=== PATIENT | male | born 1975 | race Caucasian/White ===

== ENCOUNTER 2024-08-08 14:35 | Emergency (ER) | payer OTHER, SELFPAY ==
[2024-08-08 14:41] VITALS: BP 136/89; PULSE 88; RESP 18; TEMP 36.9; O2SAT 97; BMI 36.3
--- NOTE | 2024-08-08 16:01 | CRLHL7_ITS ---
For Patients: As a result of the Cures Act, medical imaging exams and procedure reports are released immediately into your electronic medical record. You may view this report before your referring provider. If you have questions, please contact your health care provider. INDICATION: Fall. TECHNIQUE: Lumbar spine 2 view. COMPARISON: None. FINDINGS: Bones: Straightening of the lumbar spine. No fractures or significant bone lesions. Joints: There are 6 non rib-bearing vertebral bodies. The 1st 1 will be denoted as L1. With this numbering scheme, worst disc and joint space disease is moderate at the L5-L6 level.. Mild degenerative changes elsewhere. Soft tissues: Unremarkable. Dictated by Valerie Mosqueda MD @ 08/08/2024 4:32:04 PM (Electronically Signed)
--- NOTE | 2024-08-08 16:01 | ED.GENADULT ---
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 He slipped on ice today landed on his left side. Has pain in his left hip left elbow although these have improved significantly and he complains of low back pain. He has had known degenerative disc disease at L3 through S1. He has had chronic pain in his low back and he is concerned that something might have ?broken?. He is stiff but he is able to move has limited flexion extension secondary to discomfort. Does not really describe any significant significant radicular symptoms. No bowel or bladder changes fever chills perineal numbness. Related Data Home Medications ?Medication ?Instructions ?Recorded ?Confirmed amlodipine 10 mg tablet (Norvasc) 10 mg PO DAILY 08/08/24 08/08/24 losartan 50 mg tablet 50 mg PO DAILY 08/08/24 08/08/24 Allergies Allergy/AdvReac Type Severity Reaction Status Date / Time prednisone Allergy Verified 08/08/24 14:39 Review of Systems Status of ROS: Reports: 6 or more systems reviewed and unremarkable except as noted in History and below PFSH [facility] Social History Smoking Status: Former smoker Do you use any of these nicotine containing products: None Second hand tobacco smoke exposure: No How often do you have a drink containing alcohol: 2-4 times a month How many standard drinks containing alcohol do you have on a typical day: 1 or 2 How often do you have six or more drinks on one occasion: Never AUDIT-C Alcohol total score: 2 Non-prescribed substance use: denies use service: Yes Exam Narrative: Exam Narrative: Objective: Vital signs are within normal limits Alert orient x3 no distress With movement he has pain in his low back, he is able to roll over, I am able to flex extend his hips fully and internal external rotation was hips causes no trouble, lower extremities show no abnormality or tenderness . HEENT neck are unremarkable is moving fully he is alert, he has no tenderness to his left elbow and has full range of motion As mention able to flex extend his hips fully without difficulty. Const: Vital Signs, click to edit/add: Vital Signs - 24 hr 08/08/24 14:41 Temperature 98.4 F Pulse Rate [Pulse Oximeter] 88 Respiratory Rate 18 Blood Pressure [Ri ght Upper Arm] 136/89 Pulse Oximetry 97 Oxygen Delivery Me thod Room Air Course Vital Signs Vital signs: Initial Vital Signs Temperature 98.4 F 08/08/24 14:41 Temperature Source Temporal Artery Scan 08/08/24 14:41 Pulse Rate 88 08/08/24 14:41 Pulse Rhythm Regular 08/08/24 14:41 Respiratory Rate 18 08/08/24 14:41 Blood Pressure 136/89 08/08/24 14:41 Blood Pressure Mean 104 08/08/24 14:41 Blood Pressure Position Sitting 08/08/24 14:41 Pulse Oximetry 97 08/08/24 14:41 Oxygen Delivery Method Room Air 08/08/24 14:41 Vital Signs Temperature 98.4 F 08/08/24 14:41 Pulse Rate 88 08/08/24 14:41 Respiratory Rate 18 08/08/24 14:41 Blood Pressure 136/89 08/08/24 14:41 Pulse Oximetry 97 08/08/24 14:41 Oxygen Delivery Method Room Air 08/08/24 14:41 Temperature 98.4 F 08/08/24 14:41 Pulse Rate 88 08/08/24 14:41 Respiratory Rate 18 08/08/24 14:41 Blood Pressure 136/89 08/08/24 14:41 Pulse Oximetry 97 08/08/24 14:41 Oxygen Delivery Method Room Air 08/08/24 14:41 Medical Decision Making MDM Narrative Medical decision making narrative: Patient is a 49-year-old white male with known lumbar degenerative disc disease, I think at this point given his fall and where the predominance of his discomfort is low back will get an x-ray of his lumbar spine. If this is showing no compression fractures other abnormality of significance, perhaps some anti-inflammatory medication as well as tramadol for a day or 2 would be reasonable. He is off work today. Please see addendum Addendum 4:23 p.m. patient has x-ray that shows lumbar degenerative disc disease by my read. No fractures noted. Will give him Toradol and tramadol small amounts. Not to use these while he is driving. Follow up with regular doctor in his home, ice the back and aggressive basis, light activity the back. Discharge Plan Discharge Clinical Impression: Fall, Low back pain, Lumbar spondylosis Patient Disposition: Home, Self-Care Condition: Stable Additional Instructions: Patient should rest his back light activity, icing on her aggressive basis, will give him a prescription for Toradol and tramadol to use. Not to use these when he is driving. Follow-up with his regular doctor when he gets home. Activity Level: Light activity Discharge Diet: Regular Prescriptions: No Action amlodipine [Norvasc] 10 mg tablet 10 mg PO DAILY losartan 50 mg tablet 50 mg PO DAILY Stand Alone Forms: [email or web address] Info Instructions
--- OUTSIDE RECORDS SUMMARY | 2024-08-08 16:08 | XMS_ITS ---
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 Date/Time Encounter Type Encounter Description Reason Provider Source Dec 22, 2023 09:30 AM VITAL SIGNS RECORDED PRIMARY CARE/MEDICINE ICD-10-CM I10 Essential (primary) hypertension BLANCA HERRERA Michelle Encounter Template Text not used by [place] Assessments - Encounter Diagnoses This section includes the primary and secondary diagnoses documented for the Encounter. Date/Time Primary/Secondary Diagnosis Diagnosis Name Provider Source Dec 22, 2023 10:41 AM PRIMARY Essential (primary) hypertension TIKA HERRERA [facility] Plan of Treatment: Future Appointments (+ 6 months) and Future Tests (+/- 45 days) The Plan of Treatment section includes future care activities for the patient from all [place] [facility]. This section includes future appointments and future orders which are active, pending or scheduled. Future Appointments This section includes appointments that were scheduled to occur 6 months from the date of the Encounter, up to a maximum of 20 appointments. The data comes from all [place] treatment facilities. Appointment Date/Time Appointment Type Appointme nt Facility Name Jan 16, 2024 09:30 AM AMBULATORY - NONE [facility] Jan 17, 2024 04:00 PM AMBULATORY - NONE [facility] Mar 12, 2024 08:00 AM AMBULATORY - NONE [facility] Apr 09, 2024 01:00 PM AMBULATORY - NONE [facility] Jun 19, 2024 11:00 AM AMBULATORY - MEDICINE [facility] [place] Jun 20, 2024 10:15 AM AMBULATORY - NONE [facility] Social History: Smoking Status (Most current) and Tobacco Use (All prior to encounter date) This section includes the most current, and the historical, smoking and tobacco- related health factors from the [place] facility where the Encounter took place. Current Smoking Status This section includes the most current smoking, or tobacco-related health factor, from the [place] facility where the Encounter took place. Date/Time Current Smoking Status Comment Facil ity Dec 22, 2023 09:30 AM VA-TOBACCO FORMER USER [facility] Tobacco Use History This section includes a history of the smoking, or tobacco-related health factors, that were collected on or before the date of the Encounter. The data comes from the [place] facility where the Encounter took place. Date/Time Smoking Status/Tobacco Use Comment F acility Dec 22, 2023 09:30 AM VA-TOBACCO QUIT 5 TO < 15 YRS [facility] Jun 28, 2022 10:00 AM VA-TOBACCO FORMER USER [facility] Jun 28, 2022 10:00 AM VA-TOBACCO QUIT 1 TO < 5 YRS [facility] Sep 15, 2020 10:00 AM VA-TOBACCO DOESNT USE WI 30 MIN WAKEUP [facility] Sep 15, 2020 10:00 AM VA-TOBACCO USE 30 YEARS OR MORE [facility] Sep 15, 2020 10:00 AM VA-TOBACCO USE ADVICE [facility] Sep 15, 2020 10:00 AM VA-TOBACCO USE NETWORK SECURITY CONSULTANT NO [facility] Sep 15, 2020 10:00 AM VA-TOBACCO USE MED NOTIFY PROVIDER [facility] Sep 15, 2020 10:00 AM VA-TOBACCO USER EVERY DAY [facility] Jul 12, 2019 01:45 PM VA-TOBACCO DOESNT USE WI 30 MIN WAKEUP [facility] Jul 12, 2019 01:45 PM VA-TOBACCO USE 30 YEARS OR MORE [facility] Jul 12, 2019 01:45 PM VA-TOBACCO USE ADVICE [facility] Jul 12, 2019 01:45 PM VA-TOBACCO USE NETWORK SECURITY CONSULTANT YES wants to quit [facility] Jul 12, 2019 01:45 PM VA-TOBACCO USE MED NOTIFY PROVIDER wants to quit [facility] Jul 12, 2019 01:45 PM VA-TOBACCO USER EVERY DAY [facility] Feb 25, 2017 12:01 PM V7-HX TOBACCO USER >12 MONTHS <7 YEARS [facility] Encounter Notes: All associated encounter notes This section contains the clinical notes associated to the Encounter. Date/Time Encounter Note(s) Provider Source Dec 22, 2023 01:04 PM ADDENDUM: LOCAL TITLE: Addendum STANDARD TITLE: ADDENDUM DATE OF NOTE: DEC 22, 2023@13:04:51 ENTRY DATE: DEC 22, 2023@13:04:51 AUTHOR: TIAGO SHIPMAN EXP COSIGNER: URGENCY: STATUS: COMPLETED Echo ordered. 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 This question can be asked in several different ways. Choose the way that fits the patient/visit best. What REALLY matters to you in your life? What do you want your health for? What are some things that bring you amy? This question was addressed at this visit? No Scheduled Visit: PC PACT Nursing Progress Note RN VISIT: VITAL SIGNS: BLOOD PRESSURE:163/122 (12/22/2023 10:09) PULSE:79 (12/22/2023 10:09) TEMPERATURE:98.2 F [36.8 C] (12/22/2023 10:09) RESPIRATION:18 (12/22/2023 10:09) WEIGHT(LBS):228.2 lb [103.51 kg] (12/22/2023 10:09) HEIGHT(INCHES):70 in [177.8 cm] (12/22/2023 10:09) BMI: BODY MASS INDEX DEC 22, 2023@10:09:58 32.8 SEP 05, 2023@09:29:02 32.8 JAN 27, 2023@13:43:26 33.0 PAIN: 0 (12/22/2023 10:09) 96% (12/22/2023 10:09) ALLERGY: MEDROL, SERTRALINE Is there anything that makes it hard for you to take care of your health? No Do you need any medication refills or renewal today? 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 advised to f/u with PCP regarding BP Objective: initial BP 163/122 mitchel recheck 144/120. Denies any acute symptoms Assessment: General Presentation: Oriented to person, place, time, and , Situation Triage levels 5 tier: Level 5: Lower Risk/Non-Urgent Plan: Return to clinic in 2 weeks for BP check with log, amlodipine added, bp monitor ordered, PCP to order stress test for further evaluation as recommended by physician. 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 Buxton reports that BP at the time was 150s/100s. Buxton denies any acute symptoms at this time, but states that he has experienced intermittent CP and SOB (emphysema he states). Nurse advised when CP,vision disturbances, SOB,dizziness arises to report to ER for further evaluation at that time. voiced understanding. EKG ordered and completed. Normal EKG-Sinus rhythm. reports last LDCT stated the following:Moderate coronary artery calcifications and has not been further evaluated. PCP advised of the above. Amlodipine ordered.SS written with voucher. PCP advised that stress test would be ordered as well for further evaluation.CC process explained. RTC placed for BP check with log. BP monitor ordered through ROES. [place] voiced understanding. No other concerns at this time. CLINICAL REMINDER ACTIVITY/PLAN OF CARE COVID-19 Immunization: Refused Moderna Monovalent COVID-19 vaccine Immunization: COVID-19 (MODERNA), MRNA, LNP-S, PF, 50 MCG/0.5 ML (AGES 12+ YEARS) Refusal Reason: PATIENT DECISION Patient refuses all immunization(s) in the COVID-19 group Date Documented: 12/22/23 10:22 Hepatitis C Testing: HCV testing deferred for 4 months. Reason: declined Tdap Immunization: The patient declines to receive the recommended dose of Tdap vaccine. Immunization: TDAP Refusal Reason: PATIENT DECISION Patient refuses all immunization(s) in the TDAP group Date Documented: 12/22/23 10:23 Tobacco Use Screening: The patient is a former tobacco user. The patient quit five to less than fifteen years ago. Hepatitis B Serology/Immunization: Hepatitis B vaccine given previously - written records available Hepatitis B vaccine - standard 3 dose series (Energix, Recombivax, etc) Documented: HEP B, ADULT Historical Date Administered: Dec 03, 2001 Series: Series 1 Outside Location: [facility] Information Source: FROM PUBLIC AGENCY Documented: HEP B, ADULT Historical Date Administered: Jun 10, 2004 Series: Series 2 Outside Location: [facility] Information Source: FROM PUBLIC AGENCY Documented: HEP B, ADULT Historical Date Administered: Oct 02, 2006 Series: Series 3 Outside Location: [facility] Information Source: FROM PUBLIC AGENCY Alcohol Use Screen (AUDIT-C): Alcohol Screen: SCREEN FOR ALCOHOL (AUDIT-C) An alcohol screening test (AUDIT-C) was negative (score=3). 1. How often did you have a drink containing alcohol in the past year? Consider a drink to be a 12 ounce can or bottle of regular beer, 8 ounces of malt liquor, a 5 ounce glass of table wine, or a 1.5 ounce shot of liquor (like scotch, gin, or vodka). Two to four times a month 2. How many drinks containing alcohol did you have on a typical day when you were drinking in the past year? One or two drinks 3. How often did you have six or more drinks on one occasion in the past year? Less than monthly HTN Assess for Elevated BP>=140/90: Repeat blood pressure: 144/120 The patient's medication regimen was adjusted to improve blood pressure control. Comment: Amlodipine ordered.stress test to be ordered per PCP /shwetha/ CYNTHIA BAGLEY RN REGISTERED NURSE Signed: 12/22/2023 10:41 Receipt Acknowledged By: 12/22/2023 12:56 /shwetha/ TIAGO PEREZ NP [facility] Dec 22, 2023 09:58 AM PHARMACY NOTE: LOCAL TITLE: NON VA MEDS PRESCRIPTIONS STANDARD TITLE: PHARMACY NOTE DATE OF NOTE: DEC 22, 2023@09:58 ENTRY DATE: DEC 22, 2023@09:58:43 AUTHOR: TIAGO SHIPMAN EXP COSIGNER: URGENCY: STATUS: COMPLETED NON VA MED PRESCRIPTIONS ------- [place] [address] [id number] Date: DEC 22, [address] [place], [place] [id number] Patient : Jun Allergies on File: MEDROL, SERTRALINE 1. AMLODIPINE TAB 5MG TAKE ONE TABLET BY MOUTH EVERY DAY X 14 days -Disp 14 -No refill ____ Prescriber's Signature TIAGO SHIPMAN CRISELDA#: [id number] NOTE: C-II MEDICATIONS REQUIRE A SEPARATE PRESCRIPTION ====== RAMONITATIAGO Trupti [facility] Dec 22, 2023 09:05 AM PACT NOTE: LOCAL TITLE: PC PACT NURSING PROGRESS NOTE STANDARD TITLE: PACT NOTE DATE OF NOTE: DEC 22, 2023@09:05 ENTRY DATE: DEC 22, 2023@10:18:23 AUTHOR: CYNTHIA HERRERA EXP COSIGNER: URGENCY: STATUS: COMPLETED PC PACT NURSING PROGRESS NOTE Has ADDENDA WHOLE HEALTH MISSION, ASPIRATION, PURPOSE QUESTION Please address what matters most to the [place] as part of your patient centered health care visit. This question can be asked in several different ways. Choose the way that fits the patient/visit best. What REALLY matters to you in your life? What do you want your health for? What are some things that bring you amy? This question was addressed at this visit? No Scheduled Visit: PC PACT Nursing Progress Note RN VISIT: VITAL SIGNS: BLOOD PRESSURE:163/122 (12/22/2023 10:09) PULSE:79 (12/22/2023 10:09) TEMPERATURE:98.2 F [36.8 C] (12/22/2023 10:09) RESPIRATION:18 (12/22/2023 10:09) WEIGHT(LBS):228.2 lb [103.51 kg] (12/22/2023 10:09) HEIGHT(INCHES):70 in [177.8 cm] (12/22/2023 10:09) BMI: BODY MASS INDEX DEC 22, 2023@10:09:58 32.8 SEP 05, 2023@09:29:02 32.8 JAN 27, 2023@13:43:26 33.0 PAIN: 0 (12/22/2023 10:09) 96% (12/22/2023 10:09) ALLERGY: MEDROL, SERTRALINE Is there anything that makes it hard for you to take care of your health? No Do you need any medication refills or renewal today? 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 advised to f/u with PCP regarding BP Objective: initial BP 163/122 mitchel recheck 144/120. Denies any acute symptoms Assessment: General Presentation: Oriented to person, place, time, and , Situation Triage levels 5 tier: Level 5: Lower Risk/Non-Urgent Plan: Return to clinic in 2 weeks for BP check with log, amlodipine added, bp monitor ordered, PCP to order stress test for further evaluation as recommended by physician. 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 Buxton reports that BP at the time was 150s/100s. Buxton denies any acute symptoms at this time, but states that he has experienced intermittent CP and SOB (emphysema he states). Nurse advised when CP,vision disturbances, SOB,dizziness arises to report to ER for further evaluation at that time. Buxton voiced understanding. EKG ordered and completed. Normal EKG-Sinus rhythm. reports last LDCT stated the following:Moderate coronary artery calcifications and has not been further evaluated. PCP advised of the above. Amlodipine ordered.SS written with voucher. PCP advised that stress test would be ordered as well for further evaluation.CC process explained. RTC placed for BP check with log. BP monitor ordered through ROES. [place] voiced understanding. No other concerns at this time. CLINICAL REMINDER ACTIVITY/PLAN OF CARE COVID-19 Immunization: Refused Moderna Monovalent COVID-19 vaccine Immunization: COVID-19 (MODERNA), MRNA, LNP-S, PF, 50 MCG/0.5 ML (AGES 12+ YEARS) Refusal Reason: PATIENT DECISION Patient refuses all immunization(s) in the COVID-19 group Date Documented: 12/22/23 10:22 Hepatitis C Testing: HCV testing deferred for 4 months. Reason: declined Tdap Immunization: The patient declines to receive the recommended dose of Tdap vaccine. Immunization: TDAP Refusal Reason: PATIENT DECISION Patient refuses all immunization(s) in the TDAP group Date Documented: 12/22/23 10:23 Tobacco Use Screening: The patient is a former tobacco user. The patient quit five to less than fifteen years ago. Hepatitis B Serology/Immunization: Hepatitis B vaccine given previously - written records available Hepatitis B vaccine - standard 3 dose series (Energix, Recombivax, etc) Documented: HEP B, ADULT Historical Date Administered: Dec 03, 2001 Series: Series 1 Outside Location: [facility] Information Source: FROM PUBLIC AGENCY Documented: HEP B, ADULT Historical Date Administered: Jun 10, 2004 Series: Series 2 Outside Location: [facility] Information Source: FROM PUBLIC AGENCY Documented: HEP B, ADULT Historical Date Administered: Oct 02, 2006 Series: Series 3 Outside Location: [facility] Information Source: FROM PUBLIC AGENCY Alcohol Use Screen (AUDIT-C): Alcohol Screen: SCREEN FOR ALCOHOL (AUDIT-C) An alcohol screening test (AUDIT-C) was negative (score=3). 1. How often did you have a drink containing alcohol in the past year? Consider a drink to be a 12 ounce can or bottle of regular beer, 8 ounces of malt liquor, a 5 ounce glass of table wine, or a 1.5 ounce shot of liquor (like scotch, gin, or vodka). Two to four times a month 2. How many drinks containing alcohol did you have on a typical day when you were drinking in the past year? One or two drinks 3. How often did you have six or more drinks on one occasion in the past year? Less than monthly HTN Assess for Elevated BP>=140/90: Repeat blood pressure: 144/120 The patient's medication regimen was adjusted to improve blood pressure control. Comment: Amlodipine ordered.stress test to be ordered per PCP /shwetha/ CYNTHIA BAGLEY RN REGISTERED NURSE Signed: 12/22/2023 10:41 Receipt Acknowledged By: 12/22/2023 12:56 /shwetha/ TIAGO SHIPMAN NP 12/22/2023 ADDENDUM STATUS: COMPLETED Echo ordered. Please notify /shwetha/ TIAGO SHIPMAN NP Signed: 12/22/2023 13:05 Receipt Acknowledged By: 12/22/2023 14:02 /brenton BAGLEY RN REGISTERED NURSE 12/22/2023 ADDENDUM STATUS: COMPLETED called and advised that Echo ordered instead of stress test. voiced understanding. /shwetha/ CYNTHIA BAGLEY RN REGISTERED NURSE Signed: 12/22/2023 14:04 CYNTHIA HERRERA [facility]
--- OUTSIDE RECORDS SUMMARY | 2024-08-08 16:09 | XMS_ITS | Encounter Summary ---
Author Name [facility] [place] Organization [facility] [place] [facility] [place] Address [address] [place] [address] Care Team Providers Care Hydramatic Mechanic Name Role Phone TIAGO SHIPMAN Primary Care Provider Unavailabl e Selected Encounter This section includes the information on record at [place] for the Encounter. Date/Time Encounter Type Encounter Description Reason Provider Source Jul 05, 2024 02:30 PM PH1 ASSMT&MGMT NQHP TELEPHONE PRIMARY CARE ICD-10-CM I10 Essential (primary) hypertension NATALIIA CASTRO Michelle Encounter Template Text not used by [place] Assessments - Encounter Diagnoses This section includes the primary and secondary diagnoses documented for the Encounter. Date/Time Primary/Secondary Diagnosis Diagnosis Name Provider Source Jul 05, 2024 02:30 PM PRIMARY Essential (primary) hypertension NATALIIA CASTRO [facility] Plan of Treatment: Future Appointments (+ 6 months) and Future Tests (+/- 45 days) The Plan of Treatment section includes future care activities for the patient from all [place] treatmentfacilities. This section includes future appointments and future orders which are active, pending or scheduled. Future Appointments This section includes appointments that were scheduled to occur 6 months from the date of the Encounter, up to a maximum of 20 appointments. The data comes from all [place] treatment facilities. Appointment Date/Time Appointment Type Appointme nt Facility Name Jul 10, 2024 02:30 PM [facility]ATORY - [facility] Aug 10, 2024 02:30 PM AMBULATORY - NONE [facility] Encounter Notes: All associated encounter notes This section contains the clinical notes associated to the Encounter. Date/Time Encounter Note(s) Provider Source Jul 05, 2024 04:08 PM TELEPHONE ENCOUNTE R NOTE: LOCAL TITLE: ATLHUB TELE-PC TELEPHONE NOTE STANDARD TITLE: TELEPHONE ENCOUNTER NOTE DATE OF NOTE: JUL 05, 2024@16:08 ENTRY DATE: JUL 05, 2024@16:08:30 AUTHOR: NATALIIA CASTRO COSIGNER: URGENCY: STATUS: COMPLETED ATLVHTB TELE-PC TELEPHONE NOTE Has ADDENDA Chronic Disease Management (CDM) - htn CDM - Phone Call Note (X) *The patient was identified using two identifiers. Last 4 of SS# - :::::::::::::::::::::::::::::::: :::::::::::::::::::: Emergency Contact Information: E-Cont.: SUDHEER CORTES Relation Type: MOTHER Relation Note: MOTHER [address] [address] [facility] [place]'s contact info and location (confirmed with [place], including county): (X) Patient ( ) Family member :::::::::::::::::::::::::::::::: :::::::::::::::::::: Disclosure & Verbal Consent: This visit was conducted via telephone. Verbal informed consent was obtained at the time of the visit, after providing the patient with a full explanation for the virtual visit, alternatives for obtaining care through an in-person visit at the nearest [place] clinical site offering the requested service, and the patient's right of refusal, at any time, for any telehealth. Subjective/objective: contacted for chronic disease management of hypertension. has a blood pressure machine at home, however, states he does not think it is working properly as he gets very tight. BLOOD PRESSURE ASSESSMENT Unable to get initial blood pressure reading as states the blood pressure machine gets too tight where he has to stop the machine. Most recent blood pressure reading at clinic was 134/90 April 11, 2024. We briefly discussed diet, but I will elaborate on our agreed-upon nurse appointment for July 10 2:30 PM. P: Follow-up appointment scheduled for July 10 at 2:30 PM Appointment time: 30 minutes /brenton CASTRO RN, BSN, MICHELLE-KENNETH REGISTERED NURSE - VISN 7 [facility] Signed: 07/05/2024 16:13 07/05/2024 ADDENDUM STATUS: COMPLETED CLINICAL REMINDER ACTIVITY/PLAN OF CARE Suicide Screen: C-SSRS Screening [place] Suicide Severity Rating Scale (C-SSRS) screener 1. Over the past month, have you wished you were or wished you could go to sleep and not wake up? No 2. Over the past month, have you had any actual thoughts of killing yourself? No 3. Over the past month, have you been thinking about how you might do this? Response not required due to responses to other questions. 4. Over the past month, have you had these thoughts and had some intention of acting on them? Response not required due to responses to other questions. 5. Over the past month, have you started to work out or worked out the details of how to kill yourself? Response not required due to responses to other questions. 6. If yes, at any time in the past month did you intend to carry out this plan? Response not required due to responses to other questions. 7. In your lifetime, have you ever done anything, started to do anything, or prepared to do anything to end your life (for example, collected pills, obtained a gun, gave away valuables, went to the roof but didn't jump)? No 8. If YES, was this within the past 3 months? Response not required due to responses to other questions. /brenton CASTRO RN, BSN, MICHELLE-KENNETH REGISTERED NURSE - VISN 7 [facility] Signed: 07/05/2024 16:16 07/10/2024 ADDENDUM STATUS: COMPLETED Please order a Large blood pressure cuff for . I tried to order, but Unable to. /brenton CASTRO RN, BSN, MICHELLE-KENNETH REGISTERED NURSE - VISN 7 [facility] Signed: 07/10/2024 14:28 Receipt Acknowledged By: * AWAITING SIGNATURE * TIAGO SHIPMAN [facility]EL [facility]
--- OUTSIDE RECORDS SUMMARY | 2024-08-08 16:09 | XMS_ITS | Data Portability ---
Author Organization [facility]5211game, [employer] IP Address [address] [place] [address] Assessment No assessment recorded. Plan of Treatment Reminders Order Date Submit Date Provider Last Modified By Organization Details Last Modified Time Details Appointments Echo 2D - 45 2024 02:00P M Echo Lab #1 Not available Not available Not available Establish ed Patient - 10 2024 02:40P M Silvestre Hernandez MD Not available Not available Not available Lab None recorded. Referral None recorded. Procedures None recorded. Surgeries None recorded. Imaging electroca rdiogram 2023 024 [facility] [place], [address], [place], [address], 01/17/2024 15:44:50 NM, myocardia l perfusion scan - Lexiscan 2023 024 [facility] [place], [address] , [place], [address], 02/14/2024 17:18:36 US, echocardi ogram, transthor acic, complete, w/ color flow 2023 024 [facility] [place], [address] , [place], [address], 02/13/2024 14:36:21 Medication Orders None recorded. Patient TargetsNo targets recorded. Patient Instructions Encounter Date Encounter Id Patient Instructions Last Modified By Organization Details Last Modified Time 01/17/2024 [id number] angina: care instructions rgarg Not available 01/17/2024 15:59:05 high blood pressure: care instructions rgarg Not available 01/17/2024 15:59:05 learning about high blood pressure rgarg Not available 01/17/2024 15:59:05 Continue risk factor reduction. FU BOOM MAN one month to reassess symptoms and BP. Discussed plan of care with pt and family who agree and understand. rgarg Not available 01/17/2024 16:04:16 Reason for Referral None Reported. Results Created Date Observation Date Name Description Value Unit Range Abnormal Flag Note LastModifiedBy Organization Detail LastModifiedTime 01/17/20 24 elect jose r diogr am No observ ation record ed. rgarg Not Available 2023 15:58:08 02/13/20 24 02/13/2024 US, echoc ardio gram, trans thora cic, compl ete, w/ color flow No observ ation record ed. [facility] [place] [address], [place], [address], 02/13/2024 16:17:57 02/14/20 24 02/13/2024 NM, myoca rdial perfu angelic scan No observ ation record ed. [email or web address] [facility] [place] [address], [place], [address], 02/15/2024 10:07:19 Result Notes None recorded. Procedures Surgical History None recorded. Imaging Results Imaging Date Name Status LastModified by Organization Details LastModified Time 01/17/2024 electrocardiogram completed rgarg Informa tion not available 01/17/2024 15:58:08 02/13/2024 US, echocardiogram, transthoracic, complete, w/ color flow completed [facility] [place] [address], [place], [address], 02/13/2024 16:17:57 02/13/2024 NM, myocardial perfusion scan completed [email or web address] [facility] [place] [address], [place], [address], 02/15/2024 10:07:19 Procedure Notes None recorded. Medical Equipment None Reported. Allergies Allergen ID Allergen Name Allergen Category Reaction Reaction Severity Criticality Documentation Date Start Date Code Code System Note Provider Name and Address Organization Details Recorded Time [id number] prednison e medicatio n Not available Not available Not available 01/17/2024 8640 RxNorm doesn 't inter act well, pt has ptsd Not Available Not Available Not Available Medications Name Sig Start Date Stop Date Status Note LastModified by Organization Details LastModified Time cyclobenzaprine 10 mg tablet active Not Available Not Available Not Available bupropion HCl SR 150 mg tablet,12 hr sustained-releas e active Not Available Not Available Not Available meloxicam 15 mg tablet active Not Available Not Available Not Available amlodipine 5 mg tablet TAKE 1 TABLET BY MOUTH ONCE DAILY FOR 14 DAYS active Not Available Not Available No t Available sulfamethoxazole 800 mg-trimethoprim 160 mg tablet TAKE 1 TABLET BY MOUTH TWICE A DAY active Not Available Not Available No t Available Vitamin D3 10 mcg (400 unit) tablet active Not Available Not Available Not Available ergocalciferol (vitamin D2) 1,250 mcg (50,000 unit) capsule active Not Available Not Available Not Available lisinopril 40 mg tablet active Not Available Not Available Not Available diclofenac 1 % topical gel active Not Available Not Available Not Available Vitals Date Recorded Respiratory rate Body weight Heart rate Systolic blood pressure Diastolic blood pressure Provider Name and Address Organization Details Last Updated DateTime 01/17/2024 18 /min 235836. 43 g 91 /min 124 mm[Hg] 82 mm[Hg] Denise Tate [facility] 15:43:12 Social History None recorded. Functional Status None recorded. Mental Status None recorded. Family History Nothing Reported. Medical History No medical history recorded. Past Encounters Encounter ID Performer Location Encounter Start Date Encounter Closed Date Diagnosis/Indication Diagnosis SNOMED-CT Code Diagnosis ICD10 Code Diagnosis Note [id number] Silvestre Hernandez MD Cardiolog y [address] [place] [address] 01/17/2024 15:15:21 01/17/2024 16:16:08 Chest pain 91485353 R07.9 NSR on ekg today Essential hypertension 57490797 I10 Ex-cigarette smoker 2810 92369 Z87.891 Angina pectoris 18300370 0 I20.9 atypical angina. will get an echo to fu ef and valves. adeno thal to eval for ischemia Health Concerns Section Related Observation LastModified by Organization Detai ls LastModified Time None Recorded Concern Status LastModified by Organization Details LastModified Time None Recorded Advance Directives Directive None Recorded Payers Encounter Date Sequence Insurance Name Policy Number Policy Mitchell Covered Member ID Mitchell Member ID Guarantor Name 01/17/2024 [employer] - [facility] Valente Desouza [id number] Valente Desouza Notes Date Note Type Note Provider Name and Address Organization Details Recorded Time 01/17/2024 text/html Angina/Chest PainReported bypatient.Location:[facility] Aggravating Factors:worse with activity Associated Symptoms:chest discomfort;shortness of breath;exertional dyspnea;decrease in exercise capacity;fatigueNotes :hx of htn and ex smoker. has dyspnea and fatigue. L side chest sharp in nature. sometimes crushing pain. EKG with NSR -now asked to eval him. never seen a tax associate attorney before. bp goodHypertension F/UReported bypatient.Lifestyle:l imiting/avoiding salt Medications:taking medications as directed; no side effects from medicationNotes:bp good Silvestre Hernandez MD [address] , [place], [address], [facility] [employer] [facility] 01/17/2024 16:04:36
--- OUTSIDE RECORDS SUMMARY | 2024-08-08 16:09 | XMS_ITS | Encounter Summary ---
Author Name [facility] [place] Organization [facility] [place] [facility] [place] Address [address] [place] [address] Care Team Providers Care Field Underwriter Name Role Phone TIAGO SHIPMAN Primary Care Provider Unavailabl e Selected Encounter This section includes the information on record at [place] for the Encounter. Date/Time Encounter Type Encounter Description Reason Provider Source Jul 10, 2024 02:30 PM PH1 ASSMT&MGMT NQHP - TELEPHONE PRIMARY CARE ICD-10-CM I10 Essential (primary) hypertension NATALIIA CASTRO Encounter Template Text not used by [place] Assessments - Encounter Diagnoses This section includes the primary and secondary diagnoses documented for the Encounter. Date/Time Primary/Secondary Diagnosis Diagnosis Name Provider Source Jul 10, 2024 02:30 PM PRIMARY Essential (primary) hypertension NATALIIA CASTRO [facility] Plan of Treatment: Future Appointments (+ 6 months) and Future Tests (+/- 45 days) The Plan of Treatment section includes future care activities for the patient from all [place] treatmentfacilities. This section includes future appointments and future orders which are active, pending or scheduled. Future Appointments This section includes appointments that were scheduled to occur 6 months from the date of the Encounter, up to a maximum of 20 appointments. The data comes from all [place] treatment facilities. Appointment Date/Time Appointment Type Appointme nt Facility Name Aug 10, 2024 02:30 PM AMBULATORY - NONE [facility] Encounter Notes: All associated encounter notes This section contains the clinical notes associated to the Encounter. Date/Time Encounter Note(s) Provider Source Jul 10, 2024 03:19 PM ADDENDUM: LOCAL TITLE: Addendum STANDARD TITLE: ADDENDUM DATE OF NOTE: JUL 10, 2024@15:19:21 ENTRY DATE: JUL 10, 2024@15:19:23 AUTHOR: NATALIIA CASTRO EXP COSIGNER: URGENCY: STATUS: COMPLETED would like to have the following address removed from his record in CPRS: Residential Address: [address] [place] [address] [facility] the only address he lives in and receives mail is: Residential Address: [address] [facility] [address] [place] [address] /es/ NATALIIA CASTRO RN, BSN, [facility] REGISTERED NURSE - VISN 7 [facility] Signed: 07/10/2024 15:22 Receipt Acknowledged By: 07/10/2024 16:44 /es/ CYNTHIA BAGLEY RN REGISTERED NURSE 07/11/2024 12:38 /es/ KERRY AVENDAÑO BROOM MAN --- Original Document --- 07/10/24 [facility] TELE-PC TELEPHONE NOTE: Chronic Disease Management (CDM) - Diabetes CDM - Phone Call Note (X) *The patient was identified using two identifiers. Last 4 of SS# - :::::::::::::::::::::::::::::::: :::::::::::::::::::: 's contact info and location (confirmed with , including county): (X) Patient ( ) Family member Emergency Contact Information: E-Cont.: SUDHEER CORTES Relation Type: MOTHER Relation Note: MOTHER [address] [place] [address] [facility] :::::::::::::::::::::::::::::::: :::::::::::::::::::: Disclosure & Verbal Consent: This visit was conducted via telephone. Verbal informed consent was obtained at the time of the visit, after providing the patient with a full explanation for the virtual visit, alternatives for obtaining care through an in-person visit at the nearest [place] clinical site offering the requested service, and the patient's right of refusal, at any time, for any telehealth. Subjective/objective: DIABETES ASSESSMENT P: Appointment time: 30 minutes /shwetha/ NATALIIA CASTRO RN, BSN, AMB-BC REGISTERED NURSE - VISN 7 [facility] Signed: 07/10/2024 14:54 07/10/2024 ADDENDUM STATUS: COMPLETED Chronic Disease Management (CDM) - Diabetes CDM - Phone Call Note (X) *The patient was identified using two identifiers. Last 4 of SS# - :::::::::::::::::::::::::::::::: :::::::::::::::::::: 's contact info and location (confirmed with , including county): (X) Patient ( ) Family member Emergency Contact Information: E-Cont.: SUDHEER CORTES Relation Type: MOTHER Relation Note: MOTHER [address] [place] [address] [facility] :::::::::::::::::::::::::::::::: :::::::::::::::::::: Disclosure & Verbal Consent: This visit was conducted via telephone. Verbal informed consent was obtained at the time of the visit, after providing the patient with a full explanation for the virtual visit, alternatives for obtaining care through an in-person visit at the nearest [place] clinical site offering the requested service, and the patient's right of refusal, at any time, for any telehealth. Subjective/objective: Appointment for chronic disease management of hypertension. did not get new blood pressure cuff yet. DIABETES ASSESSMENT Large blood pressure cuff ordered for as the medium is too small. Unable to obtain blood pressure readings as does not have a functioning blood pressure machine. 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 [place] confirmed medications: Amlodipine 10 mg daily Losartan 50 mg daily denies any adverse reactions to his medication regimen. Education: We discussed consuming a low-sodium diet of less than 2000 mg/day. was educated on the nutrition facts label and what to look for. [place] verified understanding. P: Large blood pressure machine ordered for . Follow-up appointment scheduled for August 10 at 2 PM. Appointment time: 30 minutes /shwetha/ NATALIIA CASTRO RN, BSN, AMB-BC REGISTERED NURSE - VISN 7 [facility] Signed: 07/10/2024 15:04 NATALIIA CASTRO [place] [facility] Jul 10, 2024 02:51 PM TELEPHONE ENCOUNTE R NOTE: LOCAL TITLE: ATLPenneoB TELE-PC TELEPHONE NOTE STANDARD TITLE: TELEPHONE ENCOUNTER NOTE DATE OF NOTE: JUL 10, 2024@14:51 ENTRY DATE: JUL 10, 2024@14:53:15 AUTHOR: NATALIIA CASTRO EXP COSIGNER: URGENCY: STATUS: COMPLETED ATLHUB TELE-PC TELEPHONE NOTE Has ADDENDA Chronic Disease Management (CDM) - Diabetes CDM - Phone Call Note (X) *The patient was identified using two identifiers. Last 4 of # - :::::::::::::::::::::::::::::::: :::::::::::::::::::: [place]'s contact info and location (confirmed with , including county): (X) Patient ( ) Family member Emergency Contact Information: E-Cont.: SUDHEER CORTES Relation Type: MOTHER Relation Note: MOTHER [address] [place] [address] [facility] :::::::::::::::::::::::::::::::: :::::::::::::::::::: Disclosure & Verbal Consent: This visit was conducted via telephone. Verbal informed consent was obtained at the time of the visit, after providing the patient with a full explanation for the virtual visit, alternatives for obtaining care through an in-person visit at the nearest [place] clinical site offering the requested service, and the patient's right of refusal, at any time, for any telehealth. Subjective/objective: DIABETES ASSESSMENT P: Appointment time: 30 minutes /es/ NATALIIA CASTRO RN, BSN, AMB-BC REGISTERED NURSE - VISN 7 [facility] Signed: 07/10/2024 14:54 07/10/2024 ADDENDUM STATUS: COMPLETED Chronic Disease Management (CDM) - Diabetes CDM - Phone Call Note (X) *The patient was identified using two identifiers. Last 4 of SS# - :::::::::::::::::::::::::::::::: :::::::::::::::::::: 's contact info and location (confirmed with [place], including county): (X) Patient ( ) Family member Emergency Contact Information: E-Cont.: SUDHEER CORTES Relation Type: MOTHER Relation Note: MOTHER [address] [place] [address] [facility] :::::::::::::::::::::::::::::::: :::::::::::::::::::: Disclosure & Verbal Consent: This visit was conducted via telephone. Verbal informed consent was obtained at the time of the visit, after providing the patient with a full explanation for the virtual visit, alternatives for obtaining care through an in-person visit at the nearest [place] clinical site offering the requested service, and the patient's right of refusal, at any time, for any telehealth. Subjective/objective: Appointment for chronic disease management of hypertension. [place] did not get new blood pressure cuff yet. DIABETES ASSESSMENT Large blood pressure cuff ordered for as the medium is too small. Unable to obtain blood pressure readings as moon does not have a functioning blood pressure machine. 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 [place] confirmed medications: Amlodipine 10 mg daily Losartan 50 mg daily denies any adverse reactions to his medication regimen. Education: We discussed consuming a low-sodium diet of less than 2000 mg/day. was educated on the nutrition facts label and what to look for. [place] verified understanding. P: Large blood pressure machine ordered for . Follow-up appointment scheduled for August 10 at 2 PM. Appointment time: 30 minutes /shwetha/ NATALIIA CASTRO RN, BSN, CHRI[facility]IANO REGISTERED NURSE - VISN 7 [facility] Signed: 07/10/2024 15:04 07/10/2024 ADDENDUM STATUS: COMPLETED [place] would like to have the following address removed from his record in CPRS: Residential Address: [address] [place] [phone] [facility] the only address he lives in and receives mail is: Residential Address: [address] [place] [address] /shwetha/ NATALIIA CASTRO RN, BSN, MICHELLE-KENNETH REGISTERED NURSE - VISN 7 [facility] Signed: 07/10/2024 15:22 Receipt Acknowledged By: * AWAITING SIGNATURE * CYNTHIA HERRERA * AWAITING SIGNATURE * KERRY AVENDAÑO [facility]
--- OUTSIDE RECORDS SUMMARY | 2024-08-08 16:09 | XMS_ITS | Continuity of Care Document ---
Author Name [facility] Organization [facility] Care Team Providers Care Flag Signalman Name Role Phone [facility] Unavailable Unavailable Problems Combined list of problems from Department of Defense and Veterans Affairs facilities. It does not include entries that were removed or entered in error. 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 [facility] bronchitis Active Condition [facility] Benign hypertension Active Condition [facility] Boil Active Condition [facility] Chronic Low Back Pain Active Condition [facility] Chronic Pain Syndrome (ICD-9-CM 338.4) Active Condition [facility] Exposure to potentially hazardous substance Active Condition [facility] Exposure to potentially hazardous substance ([facility] [id number]) - Contact with Active Condition [facility] Family History of other Cardiovascular Diseases Active Condition Dec 15, 2007 Entered By: TIAGO GHOTRA Comment: father - HTN [facility] Hemorrhage of Gastrointestinal Tract * (ICD-9-CM 578.9) Active Condition [facility] History of post-traumatic stress disorder (SNOMED CT [id number]) Active Condition [facility] Hypertension Active Condition [facility] Low back pain Active Condition [facility] Nicotine Dependence (ICD-9-CM 305.1) Active Condition [facility] Osteoarthrosis, unspecified whether generalized or localized, involving unspecif Active Condition [facility] Pain in joint involving shoulder region (ICD-9-CM 719.41) Active Condition [facility] Posttraumatic stress disorder Active Condition [facility] Posttraumatic Stress Disorder * (DSM-IV 309.81/ICD-9-CM 309.81) Active Condition [facility] Sciatica * (ICD-9-CM 724.3) Active Condition [facility] Suicide attempt Active Condition Mar 16, 2017 Entered By: HILARIO MEJÍA Comment: Vet doesn't know date, prior to 2010, set up pills/alcoh ol/bath but interrupted . [facility] Tobacco Use Disorder * (ICD-9-CM 305.1) Active Condition [facility] Vitamin D Deficiency (ICD-9-CM 268.9) Active Condition [facility] Rhus Dermatitis (ICD-9-CM 692.6) Inactive Condition 12/15/2007 [facility] Diagnosis: ICD-10-CM I10 Essential (primary) hypertension Active Diagnosis [facility] Diagnosis: ICD-10-CM Z01.01 Encounter for exam of eyes and vision w abnormal findings Active Diagnosis [facility] Diagnosis: ICD-10-CM Z01.00 Encounter for exam of eyes and vision w/o abnormal findings Active Diagnosis [facility] Diagnosis: ICD-10-CM R05.9 Cough, unspecified Active Diagnosis [facility] Diagnosis: ICD-10-CM Z77.29 Contact with and exposure to other hazardous substances Active Diagnosis [facility] Diagnosis: ICD-10-CM F43.10 Post-traumatic stress disorder, unspecified Active Diagnosis [facility] Diagnosis: ICD-10-CM Z71.9 Counseling, unspecified Active Diagnosis [facility] Medications Combined list of outpatient medications from Department of Defense and Veterans Affairs facilities.Medications provided include 1) outpatient medications from the last 15 months, and 2) patient-reported medications. Medication Details Route Status Patient Instructions Prescription Expires Prescription Number Last Dispense Date Ordering Provider Order Date Order Qty Source AMLODIPINE BESYLATE 10MG TAB TAKE ONE TABLET BY MOUTH EVERY DAY FOR HYPERTEN VON ORAL ACTIVE 04/10/2025 [id number] Campos SHIPMAN ROSSI A [address] [place] [address] AMLODIPINE BESYLATE 5MG TAB TAKE ONE TABLET BY MOUTH EVERY DAY FOR HYPERTEN VON ORAL DISCONT INUED (EDIT) 12/22/2024 [id number] 4 Campos SHIPMAN ROSSI A [address] [place] [address] buPROPion (ZYBAN EQ) 150 MG ORAL TB12 TAKE ONE TABLET BY MOUTH EVERY DAY FOR DEPRESSI ON. 12/28/2023 [id number] 4 TIAGO SHIPMAN 2023 90 [facility] buPROPion (ZYBAN EQ) 150 MG ORAL TB12 TAKE ONE TABLET BY MOUTH EVERY DAY FOR DEPRESSI ON. 12/28/2023 [id number] 3 TIAGO SHIPMAN 2022 90 [facility] BUPROPION HCL 150MG 12HR TAB,SA TAKE ONE TABLET BY MOUTH EVERY DAY FOR DEPRESSI ON. ORAL 12/28/2023 [id number] 4 Campos SHIPMANA A 2022 90 [facility] Ergocalcife rol (Vitamin D Eq.) Capsule Conventiona l 1.25 mg Oral TAKE ONE CAPSULE BY MOUTH ONCE A WEEK FOR VITAMIN D DEFICIEN CY 12/06/2023 [id number] 4 TIAGO SHIPMAN 2023 13 [facility] ERGOCALCIFE ROL 1,250MCG (50,000UNIT ) CAP TAKE ONE CAPSULE BY MOUTH ONCE A WEEK FOR VITAMIN D DEFICIEN CY ORAL 12/06/2023 [id number] 4 Campos SHIPMAN A 2023 13 [facility] FISH OIL 1000MG (500MG DHA/EPA) CAP,ORAL TAKE ONE CAPSULE BY MOUTH EVERY DAY ORAL ACTIVE 09/05/2024 [id number] 5 Campos SHIPMANA A 2023 100 [facility] FISH OIL 1000MG (500MG DHA/EPA) CAP,ORAL TAKE ONE CAPSULE BY MOUTH EVERY DAY ORAL DISCONT INUED 02/10/2024 [id number] 4 Mei QUINTERO H 2022 100 [facility] Lisinopril (Prinivil) Tablet 40 mg Oral TAKE ONE TABLET BY MOUTH EVERY DAY FOR HEART/BL OOD PRESSURE Active 09/05/2024 [id number] 4 TIAGO SHIPMAN 2023 90 [facility] Lisinopril (Prinivil) Tablet 40 mg Oral TAKE ONE TABLET BY MOUTH EVERY DAY FOR HEART/BL OOD PRESSURE Discont inued 12/28/2023 [id number] 4 JUSTOTIAGO WOODSON A 2023 90 [facility] Lisinopril (Prinivil) Tablet 40 mg Oral TAKE ONE TABLET BY MOUTH EVERY DAY FOR HEART/BL OOD PRESSURE 12/28/2023 [id number] 3 ROQUETIAGO MRUPHY A 2022 90 [facility] LISINOPRIL 40MG TAB TAKE ONE TABLET BY MOUTH EVERY DAY FOR HEART/BL OOD PRESSURE ORAL DISCONT INUED BY PROVIDE R 09/05/2024 [id number] 4 Campos SHIPMAN ROSSI A 2023 90 [facility] LISINOPRIL 40MG TAB TAKE ONE TABLET BY MOUTH EVERY DAY FOR HEART/BL OOD PRESSURE ORAL DISCONT INUED 12/28/2023 [id number] 4 Campos SHIPMAN ROSSI A 2022 90 [facility] LOSARTAN 50MG TAB TAKE ONE TABLET BY MOUTH EVERY DAY FOR BLOOD PRESSURE ORAL ACTIVE 04/10/2025 [id number] 5 Campos SHIPMAN ROSSI A 2023 90 [facility] SUNSCREEN 30-50/PHYSI VERÓNICA BLOCK/PABA- FREE, COMBO LOTION APPLY SMALL AMOUNT TO SKIN EVERY DAY FOR SUNSCREE N TOPICA L 12/28/2023 [id number] 3 Campos SHIPMAN ROSSI A 2022 240 [facility] Allergies, Adverse Reactions, Alerts Combined list of allergies from Department of Defense and [facility] Affairs facilities. It does not include entries that were removed or entered in error. Substance Category Reaction Severity Reaction type Status Date Reported Comments Source LISINOPRIL Propensity to adverse reactions to drug (finding) Cough MODERATE active 4 [facility] MEDROL Propensity to adverse reactions to drug (finding) Disorientat ed active 8 [facility] Methylpredni solone Drug allergy (disorder) Disorientat ed active 8 [facility] Prednisone Drug allergy (disorder) Psychosis active 1 [place] [facility] PREDNISONE Propensity to adverse reactions to drug (finding) Psychotic disorder active 1 [facility]an [facility] Sertraline Drug allergy (disorder) Lethargy active 2 [facility] SERTRALINE Propensity to adverse reactions to drug (finding) Lethargy active 2 [facility] Immunizations Combined list of available immunizations from the Department of Defense and Veterans Affairs facilities. Immunization Series Date Given Administered By Site Reaction Lot Number CVX Code Drug Brand Planner Status Comments Source COVID-19 (MODERNA), MRNA, LNP-S, PF, 100 MCG/0.5 ML DOSE 1 2020 207 complet ed MOD; [id number]; 1 [facility] INFLUENZA, UNSPECIFIED FORMULATION 2010 88 complet ed [facility] INFLUENZA, UNSPECIFIED FORMULATION 2009 88 complet [facility] TD(ADULT) UNSPECIFIED FORMULATION 2009 139 complet ed [facility] INFLUENZA, UNSPECIFIED FORMULATION 2008 88 complet ed patient unsure of date [facility] INFLUENZA, UNSPECIFIED FORMULATION 2008 88 complet ed [facility] anthrax vaccine 5 2007 [id number] [employer] (MIP) complet ed anthrax vaccine [facility] influenza virus vaccine, live, attenuated, for intranasal use 1 2007 UNK 111 Unknown (UNK) comple t ed influenza virus vaccine, live, attenuate d, for intranasa l use [facility] typhoid Vi capsular polysaccharid e vaccine 1 2007 [id number] Sanofi Pasteur (PMC) complet ed typhoid Vi capsular polysacch aride vaccine [facility] INFLUENZA (HISTORICAL) 2006 NONE 88 complet ed L Deltoid [facility] TD(ADULT) UNSPECIFIED FORMULATION 2006 139 complet ed [facility] hepatitis B vaccine, adult dosage 3 2006 [id number] 43 [employer] (SKB) complet ed hepatitis B vaccine, adult dosage [facility] HEP B, ADULT 3 2006 43 complet [facility] influenza virus vaccine, split virus (incl. purified surface antigen)-reti red CODE 1 2004 [id number] [employer] (AVB) complet ed influenza virus vaccine, split virus (incl. purified surface antigen)- retired CODE [facility] typhoid Vi capsular polysaccharid e vaccine 1 2004 [id number] Sanofi Pasteur ([facility]) complet ed typhoid Vi capsular polysacch aride vaccine DoD typhoid Vi capsular polysaccharid e vaccine 1 2004 [id number] 101 Sanofi Pasteur ([facility]) complet ed typhoid Vi capsular polysacch aride vaccine DoD influenza virus vaccine, split virus (incl. purified surface antigen)-reti red CODE 1 2004 UNK 15 Unknown (UNK) comple t ed influenza virus vaccine, split virus (incl. purified surface antigen)- retired CODE DoD hepatitis B vaccine, adult dosage 2 2004 UNK 43 Unknown (UNK) comple t ed hepatitis B vaccine, adult dosage DoD HEP B, ADULT 2 2004 43 complet ed [facility] measles, mumps and rubella virus vaccine 1 2003 [id number] Merck (MSD) complet ed measles, mumps and rubella virus vaccine DoD anthrax vaccine [id number] [facility] [employer] ([facility]) complet ed anthrax vaccine DoD anthrax vaccine 3 2002 [id number] Unknown (UNK) comple t ed anthrax vaccine DoD influenza virus vaccine, split virus (incl. purified surface antigen)-reti red CODE 0 2002 UNK 15 Unknown (UNK) comple t ed influenza virus vaccine, split virus (incl. purified surface antigen)- retired CODE DoD anthrax vaccine 2 2002 UNK 24 Unknown (UNK) comple t ed anthrax vaccine DoD vaccinia (smallpox) vaccine 0 2002 [id number] Siva (NADYA) complet ed vaccinia (smallpox ) vaccine DoD tetanus and diphtheria toxoids, adsorbed, preservative free, for adult use (2 Lf of tetanus toxoid and 2 Lf of diphtheria toxoid) 0 2002 UNK 09 Unknown (UNK) comple t ed tetanus and diphtheri a toxoids, adsorbed, preservat brian free, for adult use (2 Lf of tetanus toxoid and 2 Lf of diphtheri a toxoid) DoD poliovirus vaccine, inactivated 0 2002 UNK 10 Unknown (UNK) comple t ed polioviru s vaccine, inactivat ed DoD anthrax vaccine 1 2002 UNK 24 Unknown (UNK) comple t ed anthrax vaccine DoD meningococcal polysaccharid e vaccine (MPSV4) 0 2002 UNK 32 Unknown (UNK) comple t ed meningoco ccal polysacch aride vaccine (MPSV4) DoD hepatitis A vaccine, adult dosage 2 2002 UNK 52 Unknown (UNK) comple t ed hepatitis A vaccine, adult dosage DoD typhoid Vi capsular polysaccharid e vaccine 0 2002 UNK 101 Unknown (UNK) comple t ed typhoid Vi capsular polysacch aride vaccine DoD hepatitis B vaccine, adult dosage 1 2001 UNK 43 Unknown (UNK) comple t ed hepatitis B vaccine, adult dosage DoD hepatitis A vaccine, adult dosage 1 2001 UNK 52 Unknown (UNK) comple t ed hepatitis A vaccine, adult dosage DoD HEP B, ADULT 1 2001 43 complet ed [facility] Results Combined list of recent chemistry, hematology and other laboratory results from Department of Defense and Veterans Affairs, ranging from 15 months to all on record, depending upon the facility. Order Name Results Value Reference Range Date Interpretation Specimen Comments Source VIT. D,25-OH,T OTAL 25-HYDROXY VITAMIN D3+25-HYDR OXYVITAMIN D2 [MASS/VOLU ME] IN SERUM OR PLASMA 23.3 ng/mL 30.0 - 100.0 09/04 L Specimen Type: SERUM No comment entered. Ordering Provider: CHERYL SHIPMAN Report Released Date/Time: Sep 05, 2023 10:23 AM Reporting Lab: [address] [facility] [address] Performing Lab: [address] [facility] [address] [facility] MICROALBU MIN URINE PANEL (NEW) MICROALBUM IN [MASS/VOLU ME] IN URINE <0.7mg/d L 08/29 L Specimen Type: URINE ([id number]) Comment: Unable to perform calculation Ordering Provider: CHERYL SHIPMAN Report Released Date/Time: Aug 19, 2023 10:28 AM Reporting Lab: [address] [place] [address] Performing Lab: [address] [facility] [address] [facility] MICROALBU MIN URINE PANEL (NEW) MICROALBUM IN/CREATIN INE [MASS RATIO] IN URINE commentm g/g 0.2 - 30.0 08/29 Specimen Type: URINE ([id number]) Comment: Unable to perform calculation Ordering Provider: CHERYL SHIPMAN Report Released Date/Time: Aug 19, 2023 10:28 AM Reporting Lab: [address] [facility] [address] Performing Lab: [address] [facility] [address] [facility] MICROALBU MIN URINE PANEL (NEW) CREATININE [MASS/VOLU ME] IN URINE 89.6 mg/dL 08/29 Specimen Type: URINE ([id number]) Comment: Unable to perform calculation Ordering Provider: CHERYL SHIPMAN Report Released Date/Time: Aug 19, 2023 10:28 AM Reporting Lab: [address] [facility] [address] [facility]forming Lab: [address] [address] [facility] HEMOGLOBI N A1C HEMOGLOBIN A1C/HEMOGL OBIN.TOTAL IN BLOOD 5.3 4.0 - 5.6 08/29 Specimen Type: BLOOD Comment: Values obtained from A1C measurement s can vary. For typical A1C assays, a reported value of 7.0 could actually be between 6.72 and 7.28 if measured by a reference method. A reported value of 9.0 could actually be between 8.73 and 9.27. Ref: http://www. ngsp.org/[place] Pdata.asp Ordering Provider: CHERYL SHIPMAN Report Released Date/Time: Aug 19, 2023 10:28 AM Reporting Lab: [address] [facility] [address] Performing Lab: [address] [facility] [address] [facility] LIPID PANEL CHOLESTERO L [MASS/VOLU ME] IN SERUM OR PLASMA 183 mg/dL 100 - 200 08/29 Specimen Type: SERUM No comment entered. Ordering Provider: CHERYL SHIPMAN Report Released Date/Time: Aug 19, 2023 10:28 AM Reporting Lab: [address] [facility] [address] Performing Lab: [address] [address] [facility] LIPID PANEL TRIGLYCERI DE [MASS/VOLU ME] IN SERUM OR PLASMA 170 mg/dL 0 - 149 08/29 H Specimen Type: SERUM No comment entered. Ordering Provider: CHERYL SHIPMAN Report Released Date/Time: Aug 19, 2023 10:28 AM Reporting Lab: [address] [address] Performing Lab: [address] [address] [facility] LIPID PANEL CHOLESTERO L IN LDL [MASS/VOLU ME] IN SERUM OR PLASMA BY CALCULATIO N 109 mg/dL 65 - 160 08/29 Specimen Type: SERUM No comment entered. Ordering Provider: CHERYL SHIPMAN Report Released Date/Time: Aug 19, 2023 10:28 AM Reporting Lab: [address] [address] Performing Lab: [address] [address] [facility] LIPID PANEL CHOLESTERO L IN LDL/CHOLES TEROL IN HDL [MASS RATIO] IN SERUM OR PLASMA 3.0 {ratio} 0.0 - 2.5 08/29 H Specimen Type: SERUM No comment entered. Ordering Provider: CHERYL SHIPMAN Report Released Date/Time: Aug 19, 2023 10:28 AM Reporting Lab: [address] [address] Performing Lab: [address] [address] [facility] LIPID PANEL CHOLESTERO L IN VLDL [MASS/VOLU ME] IN SERUM OR PLASMA BY CALCULATIO N 34 mg/dL 5 - 50 08/29 Specimen Type: SERUM No comment entered. Ordering Provider: CHERYL SHIPMAN Report Released Date/Time: Aug 19, 2023 10:28 AM Reporting Lab[facility] [address] [facility] [facility] [address] Performing Lab: [address] [address] [facility] LIPID PANEL LIPOPROTEI N.ALPHA [MASS/VOLU ME] IN BODY FLUID 40 mg/dL 40 08/29 Specimen Type: SERUM No comment entered. Ordering Provider: CHERYL SHIPMAN Report Released Date/Time: Aug 19, 2023 10:28 AM Reporting Lab: [address] [address] Performing Lab: [address] [address] [facility] CBC (WITHOUT DIFF.) LEUKOCYTES [#/VOLUME] IN BLOOD BY AUTOMATED COUNT 6.2 10*3/uL 4.0 - 11.0 08/29 Specimen Type: BLOOD No comment entered. Ordering Provider: CHERYL SHIPMAN Report Released Date/Time: Aug 19, 2023 10:28 AM Reporting Lab: [address] [address] Performing Lab: [address] [address] [facility] CBC (WITHOUT DIFF.) ERYTHROCYT ES [#/VOLUME] IN BLOOD BY AUTOMATED COUNT 5.06 10*6/uL 4.63 - 6.08 08/29 Specimen Type: BLOOD No comment entered. Ordering Provider: CHERYL SHIPMAN Report Released Date/Time: Aug 19, 2023 10:28 AM Reporting Lab: [address] [address] Performing Lab: [address] [address] [facility] CBC (WITHOUT DIFF.) HEMOGLOBIN [MASS/VOLU ME] IN BLOOD 16.2 g/dL 13.7 - 17.5 08/29 Specimen Type: BLOOD No comment entered. Ordering Provider: CHERYL SHIPMAN Report Released Date/Time: Aug 19, 2023 10:28 AM Reporting Lab: [address] [address] Performing Lab: [address] [address] [facility] CBC (WITHOUT DIFF.) HEMATOCRIT [VOLUME FRACTION] OF BLOOD BY AUTOMATED COUNT 46.1 40.1 - 51.0 08/29 Specimen Type: BLOOD No comment entered. Ordering Provider: CHERYL SHIPMAN Report Released Date/Time: Aug 19, 2023 10:28 AM Reporting Lab: [place] [address] [facility] [address] [address]: [address] [place] [address] [facility] CBC (WITHOUT DIFF.) MCV [ENTITIC VOLUME] BY AUTOMATED COUNT 91.1 fL 80.0 - 100.0 08/29 Specimen Type: BLOOD No comment entered. Ordering Provider: CHERYL SHIPMAN Report Released Date/Time: Aug 19, 2023 10:28 AM Reporting Lab: [place] [address] [place] [address] Performing Lab: [address] [facility] [address] [facility] CBC (WITHOUT DIFF.) MCH [ENTITIC MASS] BY AUTOMATED COUNT 32.0 pg 25.7 - 32.2 08/29 Specimen Type: BLOOD No comment entered. Ordering Provider: CHERYL SHIPMAN Report Released Date/Time: Aug 19, 2023 10:28 AM Reporting Lab: [address] [facility] [address] Performing Lab: [address] [address] [facility] CBC (WITHOUT DIFF.) MCHC [MASS/VOLU ME] BY AUTOMATED COUNT 35.1 g/dL 32.0 - 37.0 08/29 Specimen Type: BLOOD No comment entered. Ordering Provider: CHERYL SHIPMAN Report Released Date/Time: Aug 19, 2023 10:28 AM Reporting Lab: [place] [address] [facility] [address] Performing Lab: [address] [place] [address] [facility] CBC (WITHOUT DIFF.) PLATELETS [#/VOLUME] IN BLOOD BY AUTOMATED COUNT 236 10*3/uL 150 - 400 08/29 Specimen Type: BLOOD No comment entered. Ordering Provider: CHERYL SHIPMAN Report Released Date/Time: Aug 19, 2023 10:28 AM Reporting Lab: [place] [address] [facility] [address] Performing Lab: [address] [place] [address] [facility] CBC (WITHOUT DIFF.) PLATELET MEAN VOLUME [ENTITIC VOLUME] IN BLOOD BY AUTOMATED COUNT 10.0 fL 9.4 - 12.4 08/29 Specimen Type: BLOOD No comment entered. Ordering Provider: CHERYL SHIPMAN Report Released Date/Time: Aug 19, 2023 10:28 AM Reporting Lab: [address] [address] Performing Lab: [address] [address] [facility] CBC (WITHOUT DIFF.) ERYTHROCYT E DISTRIBUTI ON WIDTH [RATIO] BY AUTOMATED COUNT 11.9 11.6 - 16.5 08/29 Specimen Type: BLOOD No comment entered. Ordering Provider: CHERYL SHIPMAN Report Released Date/Time: Aug 19, 2023 10:28 AM Reporting Lab: [address] [address] Performing Lab: [address] [address] [facility] CBC (WITHOUT DIFF.) NUCLEATED ERYTHROCYT ES/100 LEUKOCYTES [RATIO] IN BLOOD BY AUTOMATED COUNT 0.0 0.0 - 0.2 08/29 Specimen Type: BLOOD No comment entered. Ordering Provider: CHERYL SHIPMAN Report Released Date/Time: Aug 19, 2023 10:28 AM Reporting Lab: [address] [address] Performing Lab: [address] [address] [facility] CBC (WITHOUT DIFF.) NUCLEATED ERYTHROCYT ES [#/VOLUME] IN BLOOD 0.00 10*3/uL 0.00 - 0.01 08/29 Specimen Type: BLOOD No comment entered. Ordering Provider: CHERYL SHIPMAN Report Released Date/Time: Aug 19, 2023 10:28 AM Reporting Lab: [address] [address] Performing Lab: [address] [address] [facility] COMPREHEN SIVE METABOLIC PANEL CREATININE [MASS/VOLU ME] IN SERUM OR PLASMA 0.97 mg/dL 0.50 - 1.20 08/29 Specimen Type: SERUM No comment entered. Ordering Provider: CHERYL SHIPMAN Report Released Date/Time: Aug 19, 2023 10:28 AM Reporting Lab: [address] [address] Performing Lab: [address] [facility] [address] [facility] COMPREHEN SIVE METABOLIC PANEL UREA NITROGEN [MASS/VOLU ME] IN SERUM OR PLASMA 13 mg/dL 7 - 25 08/29 Specimen Type: SERUM No comment entered. Ordering Provider: CHERYL SHIPMAN Report Released Date/Time: Aug 19, 2023 10:28 AM Reporting Lab: [address] [address] Performing Lab: [address] [address] [facility] COMPREHEN SIVE METABOLIC PANEL GLUCOSE [MASS/VOLU ME] IN SERUM OR PLASMA 133 mg/dL 70 - 110 08/29 H Specimen Type: SERUM No comment entered. Ordering Provider: CHERYL SHIPMAN Report Released Date/Time: Aug 19, 2023 10:28 AM Reporting Lab[facility] [address] [address] [address]: [address] [facility] [facility] [address] [facility] COMPREHEN SIVE METABOLIC PANEL SODIUM [MOLES/VOL UME] IN SERUM OR PLASMA 136 mmol/L 136 - 145 08/29 Specimen Type: SERUM No comment entered. Ordering Provider: CHERYL SHIPMAN Report Released Date/Time: Aug 19, 2023 10:28 AM Reporting Lab: [address] [facility] [address] Performing Lab: [address] [facility] [address] [facility] COMPREHEN SIVE METABOLIC PANEL POTASSIUM [MOLES/VOL UME] IN SERUM OR PLASMA 4.0 mmol/L 3.6 - 5.1 08/29 Specimen Type: SERUM No comment entered. Ordering Provider: CHERYL SHIPMAN Report Released Date/Time: Aug 19, 2023 10:28 AM Reporting Lab: [address] [facility] [address] Performing Lab: [address] [facility] [address] [facility] COMPREHEN SIVE METABOLIC PANEL CHLORIDE [MOLES/VOL UME] IN SERUM OR PLASMA 102 mmol/L 99 - 111 08/29 Specimen Type: SERUM No comment entered. Ordering Provider: CHERYL SHIPMAN Report Released Date/Time: Aug 19, 2023 10:28 AM Reporting Lab: [address] [facility] [address] Performing Lab: [address] [facility] [address] [facility] COMPREHEN SIVE METABOLIC PANEL CARBON DIOXIDE, TOTAL [MOLES/VOL UME] IN SERUM OR PLASMA 24 mmol/L 22 - 32 08/29 Specimen Type: SERUM No comment entered. Ordering Provider: CHERYL SHIPMAN Report Released Date/Time: Aug 19, 2023 10:28 AM Reporting Lab: [address] [facility] [address] Performing Lab: [address] [facility] [address] [facility] COMPREHEN SIVE METABOLIC PANEL CALCIUM [MASS/VOLU ME] IN SERUM OR PLASMA 8.8 mg/dL 8.6 - 10.3 08/29 Specimen Type: SERUM No comment entered. Ordering Provider: CHERYL SHIPMAN Report Released Date/Time: Aug 19, 2023 10:28 AM Reporting Lab: [address] [facility] [address] Performing Lab: [address] [facility] [address] [facility] COMPREHEN SIVE METABOLIC PANEL PROTEIN [MASS/VOLU ME] IN SERUM OR PLASMA 6.8 g/dL 6.4 - 8.9 08/29 Specimen Type: SERUM No comment entered. Ordering Provider: CHERYL SHIPMAN Report Released Date/Time: Aug 19, 2023 10:28 AM Reporting Lab: [address] [facility] [address] Performing Lab: [address] [facility] [address] [facility] COMPREHEN SIVE METABOLIC PANEL ALBUMIN [MASS/VOLU ME] IN SERUM OR PLASMA 4.3 g/dL 3.5 - 5.2 08/29 Specimen Type: SERUM No comment entered. Ordering Provider: CHERYL SHIPMAN Report Released Date/Time: Aug 19, 2023 10:28 AM Reporting Lab: [address] [address] Performing Lab: [address] [address] [facility] COMPREHEN SIVE METABOLIC PANEL BILIRUBIN. TOTAL [MASS/VOLU ME] IN SERUM OR PLASMA 0.9 mg/dL 0.3 - 1.2 08/29 Specimen Type: SERUM No comment entered. Ordering Provider: CHERYL SHIPMAN Report Released Date/Time: Aug 19, 2023 10:28 AM Reporting Lab: [address] [address] Performing Lab: [address] [address] [facility] COMPREHEN SIVE METABOLIC PANEL ALKALINE PHOSPHATAS E [ENZYMATIC ACTIVITY/V OLUME] IN SERUM OR PLASMA 82 [IU]/L 34 - 104 08/29 Specimen Type: SERUM No comment entered. Ordering Provider: CHERYL SHIPMAN Report Released Date/Time: Aug 19, 2023 10:28 AM Reporting Lab: [address] [address] Performing Lab: [address] [address] [facility] COMPREHEN SIVE METABOLIC PANEL ASPARTATE AMINOTRANS FERASE [ENZYMATIC ACTIVITY/V OLUME] IN SERUM OR PLASMA 18 [IU]/L 13 - 39 08/29 Specimen Type: SERUM No comment entered. Ordering Provider: CHERYL SHIPMAN Report Released Date/Time: Aug 19, 2023 10:28 AM Reporting Lab: [address] [address] Performing Lab: [address] [address] [facility] COMPREHEN SIVE METABOLIC PANEL ALANINE AMINOTRANS FERASE [ENZYMATIC ACTIVITY/V OLUME] IN SERUM OR PLASMA 27 [IU]/L 7 - 52 08/29 Specimen Type: SERUM No comment entered. Ordering Provider: CHERYL SHIPMAN Report Released Date/Time: Aug 19, 2023 10:28 AM Reporting Lab: [address] [facility] [address] Performing Lab: [place] [address] [facility] [address] [facility] COMPREHEN SIVE METABOLIC PANEL GLOBULIN [MASS/VOLU ME] IN SERUM 2.5 g/dL 2.6 - 4.0 08/29 L Specimen Type: SERUM No comment entered. Ordering Provider: CHERYL SHIPMAN Report Released Date/Time: Aug 19, 2023 10:28 AM Reporting Lab: [address] [facility] [address] Performing Lab: [address] [facility] [address] [facility] COMPREHEN SIVE METABOLIC PANEL ALBUMIN/GL OBULIN [MASS RATIO] IN SERUM OR PLASMA 1.72 {ratio} 0.95 - 1.59 08/29 H Specimen Type: SERUM No comment entered. Ordering Provider: CHERYL SHIPMAN Report Released Date/Time: Aug 19, 2023 10:28 AM Reporting [facility] [address] [address] Performing Lab: [address] [facility] [address] [facility] COMPREHEN SIVE METABOLIC PANEL ANION GAP IN SERUM OR PLASMA 10 mmol/L 5 - 12 08/29 Specimen Type: SERUM No comment entered. Ordering Provider: CHERYL SHIPMAN Report Released Date/Time: Aug 19, 2023 10:28 AM Reporting Lab: [address] [facility] [address] Performing Lab: [address] [facility] [address] [facility] COMPREHEN SIVE METABOLIC PANEL UREA NITROGEN/C REATININE [MASS RATIO] IN SERUM OR PLASMA 13.4 {ratio} 12.0 - 20.0 08/29 Specimen Type: SERUM No comment entered. Ordering Provider: CHERYL SHIPMAN Report Released Date/Time: Aug 19, 2023 10:28 AM Reporting Lab: [address] [facility] [address] Performing Lab: [address] [facility] [address] [facility] COMPREHEN SIVE METABOLIC PANEL GLOMERULAR FILTRATION RATE/1.73 SQ M.PREDICTE D [VOLUME RATE/AREA] IN SERUM, PLASMA OR BLOOD BY CREATININE -BASED FORMULA (CKD-EPI 2020) 96 mL/min 60 08/29 Specimen Type: SERUM No comment entered. Ordering Provider: CHERYL SHIPMAN Report Released Date/Time: Aug 19, 2023 10:28 AM Reporting Lab: [address] [facility] [address] Performing Lab: [address] [place] [address] [facility] OCCULT BLOOD FIT X1 SCREEN (POLYMEDC O) HEMOGLOBIN .GASTROINT ESTINAL.LO WER [PRESENCE] IN STOOL BY IMMUNOASSA Y Negative 01/05 Specimen Type: FECES No comment entered. Ordering Provider: CHERYL SHIPMAN Report Released Date/Time: Dec 27, 2022 11:32 AM Reporting Lab: [address] [address] Performing Lab: [address] [facility] [address] [facility] Vital Signs Combined list of inpatient and outpatient Vital Signs from Department of Defense and Veterans Affairs, ranging from 12 months to all on record, depending upon the facility. Vital Sign Value Date Comments Source TEMPERATURE 97.5 06/19/2024 11:04:38 [facility] SYSTOLIC BLOOD PRESSURE 150 04/09/2024 13:14:23 [facility] DIASTOLIC BLOOD PRESSURE 107 04/09/2024 13:14:23 [facility] PULSE OXIMETRY 97 04/09/2024 13:14:23 [facility] WEIGHT 244.9 04/09/2024 13:14:23 [facility] BMI 35 kg/m2 04/09/2024 13:14:23 [facility] PAIN 0 04/09/2024 13:14:23 [facility] HEIGHT 70 04/09/2024 13:14:23 [facility] TEMPERATURE 97.7 04/09/2024 13:14:23 [facility] PULSE 88 04/09/2024 13:14:23 [facility] RESPIRATION 18 04/09/2024 13:14:23 [facility] SYSTOLIC BLOOD PRESSURE 163 12/22/2023 10:09:58 [facility] DIASTOLIC BLOOD PRESSURE 122 12/22/2023 10:09:58 [facility] PULSE OXIMETRY 96 12/22/2023 10:09:58 [facility] WEIGHT 228.2 12/22/2023 10:09:58 [facility] BMI 33 kg/m2 12/22/2023 10:09:58 [facility] PAIN 0 12/22/2023 10:09:58 [facility] HEIGHT 70 12/22/2023 10:09:58 [facility] TEMPERATURE 98.2 12/22/2023 10:09:58 [facility] PULSE 79 12/22/2023 10:09:58 [facility] RESPIRATION 18 12/22/2023 10:09:58 [facility] SYSTOLIC BLOOD PRESSURE 140 09/05/2023 09:29:02 [facility] DIASTOLIC BLOOD PRESSURE 78 09/05/2023 09:29:02 [facility] PULSE OXIMETRY 97 09/05/2023 09:29:02 [facility] WEIGHT 228.2 09/05/2023 09:29:02 [facility] BMI 33 kg/m2 09/05/2023 09:29:02 [facility] PAIN 4 09/05/2023 09:29:02 [facility] HEIGHT 70 09/05/2023 09:29:02 [facility] TEMPERATURE 98.6 09/05/2023 09:29:02 [facility] PULSE 87 09/05/2023 09:29:02 [facility] RESPIRATION 20 09/05/2023 09:29:02 [facility] Encounters Combined list of: 1) Encounters from Department of Veterans Affairs facilities going backup to the last 18 months, not all VA inpatient encounters are included; 2) Encounters from the Department of Defense facilities going backup to 280 months. Location Location Details Encounter Type Encounter Number Reason For Visit Attending Provider ADM Date DC Date Status [facility] [id number] flu symptom s ARIANA ARNETT 06/29 Sick at Home/Quarter s [place]([facility]) Theater Facility OUTPATIENT [id number] 11/09 Released w/o Limitations Theater Facilit y D. D. Treasure r [facility] OUTPATIENT [id number] [facility] JUANI VALVERDE 08/15 Released w/o Limitations D. D. Ibrahima cabrales [facility] DCeci Amanda r [facility] OUTPATIENT [id number] refrad EPTS HNP L4 per Mod 9 Tab A para 7-x CASTILLO BARROLYN 08/15 Released with Work/Duty Limitations D. D. 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 MEL,THER JIM 03/07 [facility] PSYTX W PT 30 MINUTES [id number] Diagnos is: ICD-10- CM F43.10 Post-tr aumatic stress disorde r, unspeci fied MEL,THER JIM 03/07 [facility] Outpatient Encounter [id number] 04/07 [facility] CASE [facility] [id number] Diagnos is: ICD-10- CM F43.10 Post-tr aumatic stress disorde r, unspeci fied PARRISH KIM 04/12 [facility] Encounter [id number] 04/25 [facility] En[facility] [id number] 06/14 [facility] [id number] Diagnos is: ICD-10- CM F43.10 Post-tr aumatic stress disorde r, unspeci Liz Mendez 06/28 [facility] PSYCH DIAGNOSTIC EVALUATION [id number] Diagnos is: ICD-10- CM F43.10 Post-tr aumatic stress disorde r, unspeci Liz Mendez 07/12 [facility] Out[facility] Encounter [id number] 07/26 [facility] Out[facility] Encounter [id number] 08/08 [facility] Outpatient Encounter [id number] 08/09 [facility] Outpatient Encounter [id number] ELA HERRERA 08/18 [facility] PSY[facility] W PT 60 MINUTES [id number] [id number] Diagnos is: ICD-10- CM F43.10 Post-tr aumatic stress disorde r, ottonieli Liz Mendez 08/28 [facility] Outpatient Encounter [id number] 08/29 [facility] Outpatient Encounter [id number] Darlene TOLENTINO 09/01 [facility] OFFICE O/P EST MOD 30 MIN [id number] Diagnos is: ICD-10- CM Z77.29 Contact with and exposur e to other hazardo us substan JEANETTE Pettit 09/04 [facility] Outpatient Encounter [id number] Darlene TOLENTINO 09/19 [facility] Outpatient Encounter [id number] ELA HERERRA 09/19 [facility] Outpatient Encounter [id number] 12/21 [facility] VITAL SIGNS RECORDED [id number] Diagnos is: ICD-10- CM I10 Essenti al (primar y) hyperte nsion SHARONELA BAGLEY 12/21 [facility] Outpatient Encounter [id number] 01/17 [facility] Outpatient Encounter [id number] ELA HERRERAJM BAGLEY 01/18 [facility] Outpatient Encounter [id number] 01/18 [facility] Outpatient Encounter [id number] 02/16 [facility] Outpatient Encounter [id number] [id number] 02/19 [facility] Outpatient Encounter [id number] 02/21 [facility] OFF/OP EST MAY X REQ PHY/QHP [id number] Diagnos is: ICD-10- CM R05.9 Cough, unspeci fied ELA HERRERAJM BAGLEY 04/09 [facility] Outpatient Encounter [id number] [id number] 04/11 [facility] Outpatient Encounter [id number] [id number] 04/12 [facility] CO/[place] DIFFUSE CAPACITY [id number] [id number] ALBER DUPREE MD 06/19 [facility] Outpatient Encounter [id number] 06/20 [facility] OFF/OP EST MAY X REQ PHY/QHP [id number] Diagnos is: ICD-10- CM Z01.00 Encount er for exam of eyes and vision w/o abnorma l finding s JUDIT ESCOBEDO 06/20 [facility] Outpatient Encounter [id number] Diagnos is: ICD-10- CM Z01.01 Encount er for exam of eyes and vision w abnorma l finding s HILARIO BAÑUELOS 06/20 [facility] ASSMT&MGMT NQHP [id number] Diagnos is: ICD-10- CM I10 Essenti al (primar y) hyperte FRANK Jo IEL 07/05 [facility] ASSMT&MGMT NQHP [id number] Diagnos is: ICD-10- CM I10 Essenti al (primar y) hyperte FRANK oJ IEL 07/10 [facility] Procedures Combined list of: 1) Procedures from Department of Veterans Affairs facilities going back up to thelast 18 months, not all [place] non-surgical procedures are included; 2) All procedures from the Department of Defense facilities. Procedure Procedure Type Code Date Perfomer Comments [facility] e Coordinated care fee, maintenance rate 08/16/19 09 JUANI VALVERDE [facility] Psychiatric Diagnostic Evaluation Comprehensive Examination Psychiatric Diagnostic Evaluation Comprehensive Examination 09208 04/09/20 08 PEGGY BOWEN [facility] Psychologic Testing And Report Administered By Physician Psychologic Testing And Report Administered By Physician [id number] 04/09/20 08 PEGGY BOWEN [facility] Health And Behav A e mt Each 15 Min Initial A e ment Health And Behav Assessmt Each 15 Min Initial Assessment 12491 10/12/19 06 RYDER YU [facility] COORDINATED CARE FEE, MAINTENANCE RATE 08/16/19 09 [facility] PSYCHIATRIC DIAGNOSTIC INTERVIEW EXAMINATION 04/09/20 08 [facility] IMMUNIZATION ADMINISTRATION (INCLUDES PERCUTANEOUS, INTRADERMAL, SUBCUTANEOUS, OR INTRAMUSCULAR INJECTIONS); 1 VACCINE (SINGLE OR COMBINATION VACCINE/TOXOID) 10/12/19 06 [facility] EDUCATIONAL SUPPLIES, SUCH BOOKS, TAPES, AND PAMPHLETS, FOR THE PATIENT'S EDUCATION AT COST TO PHYSICIAN OR OTHER QUALIFIED HEALTH ELEMENTARY MATH TUTOR 10/12/19 06 [facility] HEALTH&BEHAV ASSESSMENT (EG, HEALTH-FOC CLINICAL INTERVIEW, BEHAVIORAL OBSERVATIONS, PSYCHOPHYSICOLOGICAL MONITOR, HEALTH-ORIENT QUESTIONNAIRES), EA 15 MIN [id number] W THE PATIENT; INIT ASSESSMENT 10/12/19 06 [facility] INFLUENZA VIRUS VACCINE, TRIVALENT (IIV3), SPLIT VIRUS, 0.5 ML DOSAGE, FOR INTRAMUSCULAR USE 08/25/19 05 [facility] EDUCATIONAL SUPPLIES, SUCH BOOKS, TAPES, AND PAMPHLETS, FOR THE PATIENT'S EDUCATION AT COST TO PHYSICIAN OR OTHER QUALIFIED HEALTH ELEMENTARY MATH TUTOR 06/24/19 05 [facility] IMMUNIZATION ADMINISTRATION (INCLUDES PERCUTANEOUS, INTRADERMAL, SUBCUTANEOUS, OR INTRAMUSCULAR INJECTIONS); 1 VACCINE (SINGLE OR COMBINATION VACCINE/TOXOID) 07/18/19 04 [facility] UNLISTED SPECIAL SERVICE, PROCEDURE OR REPORT 07/18/19 04 [facility] Social History Combined list of available smoking, tobacco, and other social history from Department of Defense and Veterans Affairs facilities. Social History Type Response Date Comment [facility] e Tobacco smoking status NHIS VA-TOBACCO FORMER USER [facility] History of tobacco use DE-TOBACCO QUIT 5 TO < 15 YRS 12/22/2023 [facility] History of tobacco use VA-TOBACCO FORMER USER 12/24/2022 [facility] History of tobacco use VA-TOBACCO FORMER USER 06/28/2022 [facility] History of tobacco use DE-TOBACCO QUIT < 1 YEAR 07/01/2021 [facility] History of tobacco use VA-TOBACCO USER EVERY DAY 1 [facility] History of tobacco use VA-TOBACCO USER EVERY DAY 0 [facility] History of tobacco use V7-TOBACCO QUIT DATE 02/25/2017 [facility] History of tobacco use V7-HX TOBACCO USE R >12 MONTHS <7 YEARS 02/25/2017 [facility] History of tobacco use V7-TOBACCO QUIT DATE 01/23/2015 [facility] History of tobacco use V7-HX TOBACCO USE R >12 MONTHS <7 YEARS 01/23/2015 [facility] History of tobacco use V7-CURRENT TOBACC O PRODUCT USER 11/29/2011 [facility] History of tobacco use QUIT TOBACCO IN T HE LAST 12 MONTHS 03/23/2011 [facility] History of tobacco use V7-CURRENT TOBACC O PRODUCT USER 01/16/2010 [facility] History of tobacco use V7-CURRENT TOBACC O PRODUCT USER 10/16/2009 [facility] History of tobacco use V7-CURRENT TOBACC O PRODUCT USER 04/02/2008 [facility] History of tobacco use V7-CURRENT TOBACC O PRODUCT USER 12/15/2007 [facility] History of tobacco use V7-CURRENT TOBACC O PRODUCT USER 03/09/2007 [facility] This section is an empty social history section. [facility] Plan of Care List of future care activities from Department of Veterans Affairs facilities. Additional future care activities may be listed in the Assessment and Plan section. Date/Time Care Activity Care Activity Detail Facili ty 08/10/2024 AMBULATORY - NONE AMBULATORY - NONE [facility]
--- OUTSIDE RECORDS SUMMARY | 2024-08-08 16:09 | XMS_ITS | Encounter Summary ---
Author Organization [facility] Address [place] [address] Care Team Providers Care Financial Management Consultant Name Role Phone Unavailable Primary Care Provider Unavailabl e Encounter Details Date Type Department Care Team (Late st Contact Info) Description 01/08/2022 Conversion Encounter [facility] - Historical Conversion [address] [place] [address] Gerard Patino NP [address] [place] [address] Social History Tobacco Use Types Packs/Day Years Used Date Smoking Tobacco: Never Assessed Sex and Gender Information Value Date Recorded Sex Assigned at Male 07/01/2018 1:18 PM EST Legal Sex Male 5:04 PM EDT Gender Identity Not on file Sexual Orientation Not on file documented as of this encounter ED Notes * Gerard Patino NP - 01/08/2022 11:31 AM EDT Patient: VALENTE DESOUZA Age: 46 years Sex: Male : 73 Associated Diagnoses: None Author: GERARD PATINO NP Basic Information Time seen: Provider Seen (ST) Time Seen: GERARD PATINO NP / 01/08/2022 11:16 . History source: Patient. Arrival mode: Private vehicle. History limitation: None. Additional information: Chief Complaint from Nursing Triage Note : Chief Complaint 01/08/22 10:31 EDT Chief Complaint [facility]ENT [facility] TO BACK OF NECK X 3 DAYS. . History of Present Illness The patient presents with abscess. The onset was 3 days ago. The course/duration of symptoms is constant. Location: Posterior Neck. The character of symptoms is pain, redness and drainage. The degreeof symptoms is moderate. Risk factors consist of none. Prior episodes: occasional. Therapy today: none. Associated symptoms: none. Patient presents with abscess to the posterior neck area. States that in about 3 days. States he gets them frequently. Patient has had about 10 in last 15 years. Patient likely went to the [place] [facility] and was last, hospital. Patient also states they are going to set himup with a industrial property appraiser as he has them quite frequently. Patient denies any fever, neck pain, headache, numbness or ting, sore throat, or any other associate symptoms. Review of Systems Constitutional symptoms: No fever, no chills. Skin symptoms: Lesion, No crespo, ENMT symptoms: No sore throat, Respiratory symptoms: No cough, Cardiovascular symptoms: No chest pain, Gastrointestinal symptoms: No vomiting, Genitourinary symptoms: No dysuria, Musculoskeletal symptoms: No Claudication, Neurologic symptoms: No headache, Hematologic/Lymphatic symptoms: No petechiae, Additional review of systems information: All other systems reviewed and otherwise negative. Health Status Allergies: Allergic Reactions (Selected) Severity Not Documented PredniSONE- No reactions were documented.. Medications: (Selected) Inpatient Medications Ordered Bactrim DS 800 mg-160 mg oral tablet: 1 tab, Oral, Once Xylocaine 1%: 10 mL, Subcutaneous, Once Xylocaine HCl with Epinephrine 1%-1:100,000 injectable solution: 10 mL, Subcutaneous, Once Prescriptions Prescribed Zapata 5 mg-325 mg oral tablet: 1 tab, Oral, q6h, 12 tab Percocet 5/325: 1 tab, Oral, BID, 16 tab, PRN: as needed for pain Percocet 7.5/325: 1 tab, Oral, q6h, 12 tab Documented Medications Documented Percocet 5/325: tab. Past Medical/ Family/ Social History Surgical history: No active procedure history items have been selected or recorded., Reviewed as documented in chart. Family history: No family history items have been selected or recorded., Reviewed as documented in chart. Social history: Social & Psychosocial Habits Alcohol 12/26/2010 Use: Current Type: Beer Frequency: 1-2 times per year 01/25/2012 Use: Current Type: Beer Frequency: 1-2 times per week Substance Abuse 12/26/2010 Risk Assessment: Denies Substance Abuse Tobacco 12/26/2010 Use: Current Type: Cigarettes Cigarette Packs Per Day: 0.25 01/25/2012 Use: Current Type: Cigarettes , Reviewed as documented in chart. Problem list: No qualifying data available , per nurse's notes. Physical Examination Vital Signs Vital Signs 01/08/22 10:31 EDT Temperature Oral 98.4 DegF Peripheral Pulse Rate 91 bpm Respiratory Rate 18 br/min Systolic Blood Pressure 132 mmHg Diastolic Blood Pressure 87 mmHg SpO2 95 % . General: Alert, no acute distress, Not ill-appearing, Skin: Warm, dry, Erythema approximately 2.2 cm with area of induration proximately 0.5 cm. Mild fluctuance is noted. Area is located at the upper part of the posterior neck inside the hairline.. Head: Normocephalic. Neck: Supple. Eye: Pupils are equal, round and reactive to light, normal conjunctiva. Ears, nose, mouth and throat: Oral mucosa moist. Cardiovascular: Regular rate and rhythm, Normal peripheral perfusion. Respiratory: Lungs are clear to auscultation, respirations are non-labored. Gastrointestinal: Soft, Nontender, Non distended, Normal bowel sounds. Genitourinary: Exam deferred. Back: Nontender, Normal range of motion, Normal alignment. Musculoskeletal: Normal ROM, no swelling, no deformity. Neurological: Alert and oriented to person, place, time, and situation, No focal neurological deficit observed, normal motor observed, normal speech observed. Lymphatics: No lymphadenopathy. Psychiatric: Cooperative, appropriate mood & affect, normal judgment. Medical Decision Making Differential Diagnosis:: Abscess, cellulitis, folliculitis, sebaceous cyst. Documents reviewed: Emergency department nurses' notes. Notes: Exam consistent with folliculitis. Since no fever, will treat prescription. Vies keep appointment with a industrial property appraiser. Advised on return ER. Patient is comfortable agrees with plan.. Procedure Incision and drainage Time: 01/08/22 12:10:00 . Confirmed: Patient, procedure, side, and site correct, Time-out taken prior to procedure. Consent: Patient. Indication: Abscess. Pre procedure exam: Circulation, motor, and sensory intact. Procedural sedation: None. Description Location: Upper posterior neck area.. Anesthesia: 1 ml, 1% lidocaine. Preparation: sterile field established, skin prepped with betadine. Incision: 1.0 cm incision was made. Technique: fluid collection was manually decompressed, wound probed, loculations decompressed. Drainage: small amount, purulent. Irrigation: copious, with saline. Wound. Post procedure exam: Circulation, motor, sensory examination intact. Patient tolerated: Well. Complications: None. Follow-up: Primary care physician. Performed by: Self. Total time: 10 minutes. Impression and Plan Diagnosis Posterior neck folliculitis Plan Condition: Stable. Disposition: Medically cleared. Prescriptions: Launch prescriptions Pharmacy: Bactrim DS 800 mg-160 mg oral tablet (Prescribe): 1 tab, Oral, BID, for 10 day, 20 tab, 0 Refill(s). Follow up with: Return to Emergency Department, Primary Care Physician, In: 2 day(s). Counseled: Patient, Regarding diagnosis, Regarding treatment plan, Regarding prescription, Patient indicated understanding of instructions. Notes: This care was provided during unprecedented national emergencies, due to the novel coronavirus Covid-19 actions and transmission risk, place have restraints on healthcare resources. This pandemic involves the hospital and provider strive to respond fluidly, to remain operational and to provide care relative to available resources and information. Outcomes are unpredictable and treatments are without well-defined guidelines. Further impact of the COVID-19 on all aspects of emergency care,including the impact of patient seeking care for reasons other than COVID-19, is unavoidable duringthe national emergency.. documented in this encounter Plan of Treatment Not on file documented as of this encounter Procedures Procedure Name Priority Date/Time Associated Diagnosis Comments AEROBIC CULTURE Routine 01/08/2022 1:00 PM EDT documented in this encounter Results * (ABNORMAL) Aerobic Culture (01/08/2022 1:00 PM EDT) 01/08/2022 1:00 PM EDT Comment:ABSCESS Narrative [facility] CONVERSION - 01/11/2022 7:50 AM EDT Light Growth Methicillin-Resistant Staphylococcus aureus Gerard Patino NP LAB MICROBIOLOGY OR DERABLES Final Result [facility] CONVERSION documented in this encounter Visit Diagnoses Not on filedocumented in this encounter
--- OUTSIDE RECORDS SUMMARY | 2024-08-08 16:09 | XMS_ITS | Clinical Summary ---
Author Organization [email or web address] [facility] Address [address] [place] [id number] Care Team Providers Care Candy Maker Helper Name Role Phone None Primary Care Provider Unavailabl e Allergies Active Allergy Reactions Criticality Noted Date Comments Prednisone Anxiety 07/14/2021 Social History Tobacco Use Types Packs/Day Years Used Date Smoking Tobacco: Never Assessed Sex and Gender Information Value Date Recorded Sex Assigned at Not on file Legal Sex Male 9:04 AM DELIVERY TABLE FEEDER Gender Identity Not on file Sexual Orientation Not on file Obstetrics History Last Filed Vital Signs Vital Sign Reading Time Taken Comments Blood Pressure 146/100 07/14/2021 9:17 AM DELIVERY TABLE FEEDER Pulse 90 07/14/2021 9:17 AM DELIVERY TABLE FEEDER Temperature 36.8 C (98.2 F) 07/14/2021 9:17 AM DELIVERY TABLE FEEDER Respiratory Rate 18 07/14/2021 9:17 AM DELIVERY TABLE FEEDER Oxygen Saturation 96% 07/14/2021 9:17 AM DELIVERY TABLE FEEDER Inhaled Oxygen Concentration - - Weight 103.9 kg (229 lb) 07/14/2021 9:17 AM DELIVERY TABLE FEEDER Height 177.8 cm (5' 10) 07/14/2021 9:17 AM DELIVERY TABLE FEEDER Body Mass Index 32.86 07/14/2021 9:17 AM DELIVERY TABLE FEEDER Plan of Treatment Not on file Insurance [facility] [place] [id number] [employer] [facility] Care Teams Candy Maker Helper Relationship Specialty Start Date End Date None . PCP - General 07/13/21
--- OUTSIDE RECORDS SUMMARY | 2024-08-08 16:10 | XMS_ITS | Referral Summary ---
Author Organization [facility] Address [address] [place] [id number] Care Team Providers Care Applications Systems Engineer Name Role Phone Unavailable Primary Care Provider Unavailabl e Social History Tobacco Use Types Packs/Day Years Used Date Smoking Tobacco: Never Assessed Sex and Gender Information Value Date Recorded Sex Assigned at Male 07/01/2018 1:18 PM EST Legal Sex Male 5:04 PM EDT Gender Identity Not on file Sexual Orientation Not on file Plan of Treatment Not on file
--- OUTSIDE RECORDS SUMMARY | 2024-08-08 16:10 | XMS_ITS | Encounter Summary ---
Author Name [facility] Address [address] [place] [address] Care Team Providers Care Mitochondrial Disorders Counselor Name Role Phone TIAGO SHIPMAN Primary Care Provider Unavailabl e Selected Encounter This section includes the information on record at [place] for the Encounter. Date/Time Encounter Type Encounter Description Reason Provider Source Jun 19, 2024 11:00 AM [facility]/PHILLIP DIFFUSE CAPACITY PULMONARY FUNCTION KAI DUPREE MD E Encounter Template Text not used by [place] Plan of Treatment: Future Appointments (+ 6 months) and Future Tests (+/- 45 days) The Plan of Treatment section includes future care activities for the patient from all [place] treatmentfacilities. This section includes future appointments and future orders which are active, pending or scheduled. Future Appointments This section includes appointments that were scheduled to occur 6 months from the date of the Encounter, up to a maximum of 20 appointments. The data comes from all [place] treatment facilities. Appointment Date/Time Appointment Type Appointme nt Facility Name Jun 20, 2024 10:15 AM AMBULATORY - NONE [facility] Jul 05, 2024 02:30 PM AMBULATORY - NONE [facility] Jul 10, 2024 02:30 PM AMBULATORY - NONE [facility] Aug 10, 2024 02:30 PM [facility]ATORY - [facility] Vital Signs: All taken on the encounter date This section contains inpatient and outpatient Vital Signs collected on the date of the Encounter. Date/Time Temperature Pulse Blood Pressure Respiratory Rate SP02 Pain Height Weight Body Mass Index Source Jun 19, 2024 11:04 AM 97.5 [facility] Social History: Smoking Status (Most current) and Tobacco Use (All prior to encounter date) This section includes the most current, and the historical, smoking and tobacco- related health factors from the [place] facility where the Encounter took place. Current Smoking Status This section includes the most current smoking, or tobacco-related health factor, from the [place] facility where the Encounter took place. Date/Time Current Smoking Status Comment Facil ity Dec 24, 2022 04:26 PM VA-TOBACCO FORMER USER [facility] Tobacco Use History This section includes a history of the smoking, or tobacco-related health factors, that were collected on or before the date of the Encounter. The data comes from the [place] facility where the Encounter took place. Date/Time Smoking Status/Tobacco Use Comment F actae Dec 24, 2022 04:26 PM VA-TOBACCO QUIT 1 TO < 5 YRS [facility] Jul 01, 2021 01:57 PM VA-TOBACCO FORMER USER [facility] Jul 01, 2021 01:57 PM VA-TOBACCO QUIT < 1 YEAR [facility] Feb 25, 2017 12:05 PM V7-TOBACCO QUIT DATE [facility] Jan 23, 2015 08:35 AM V7-TOBACCO QUIT DATE [facility] Jan 23, 2015 08:30 AM V7-HX TOBACCO USER >12 MONTHS <7 YEARS [facility] Nov 29, 2011 02:40 PM V7-CURRENT TOBACCO PRODUCT USER [facility] Jan 16, 2010 11:34 AM V7-CURRENT TOBACCO PRODUCT USER [facility] October 16, 2009 02:14 PM V7-CURRENT TOBACCO PRODUCT USER [facility] Apr 02, 2008 03:45 PM V7-CURRENT TOBACCO PRODUCT USER [facility] Dec 15, 2007 04:44 PM V7-CURRENT TOBACCO PRODUCT USER [facility] Dec 15, 2007 04:44 PM V7-DECLINED MEDS FOR TOBACCO SONAM SATION [facility] Mar 09, 2007 08:12 AM V7-CURRENT TOBACCO PRODUCT USER [facility] Encounter Notes: All associated encounter notes This section contains the clinical notes associated to the Encounter. Date/Time Encounter Note(s) Provider Source Jun 20, 2024 09:22 AM PULMONARY PROCEDUR E REPORT: LOCAL TITLE: PULMONARY PROCEDURE PFT STANDARD TITLE: PULMONARY PROCEDURE REPORT DATE OF NOTE: JUN 20, 2024@09:22:17 ENTRY DATE: JUN 20, 2024@09:22:17 AUTHOR: CLINICAL,DEVICE PRO EXP COSIGNER: URGENCY: STATUS: COMPLETED PROCEDURE SUMMARY CODE: Machine Resulted DATE/TIME PERFORMED: JUN 19, 2024@10:51:3 DOCUMENT IN VISTA IMAGING SEE FULL REPORT IN VISTA IMAGING SIGNATURE NOT REQUIRED SEE SIGNATURE IN VISTA IMAGING (VMAX BI-Directional) AUTO-INSTRUMENT DIAGNOSIS Procedure: PFT pft ._USVA_PFT_DECATUR: Spirometry with reduced FEV1 and FVC but preserved ratio. There is no significant bronchodilator response. Lung volumes show mild restriction. Diffusion capacity is normal. This i Administrative Closure: 06/20/2024 by: DEVICE PROXY SERVICE CLINICAL Clinical,Device Proxy Service CLINICAL,DEVICE PROXY SERVICE [facility] Jun 19, 2024 11:04 AM INFECTIOUS DISEASE RISK ASSESSMENT SCREENING NOTE: LOCAL TITLE: SCREENING COVID STANDARD TITLE: INFECTIOUS DISEASE RISK ASSESSMENT SCREENING NOT DATE OF NOTE: JUN 19, 2024@11:04 ENTRY DATE: JUN 19, 2024@11:06:16 AUTHOR: LEONARDO STEINBERG EXP COSIGNER: URGENCY: STATUS: COMPLETED Coronavirus Disease 2019 (COVID-19) Screen The patient was asked if in the last 14 days they have had new onset of any COVID-19 symptoms. They report the following: No symptoms Within the past 14 days, the patient reports no exposure to someone with a febrile/respiratory illness or someone with a known or suspected case of COVID-19 (within 6 feet for > 15 minutes). Result: Screen is negative. /shwetha/ HANNAH STEINBERG BSN, RN REGISTERED NURSE Signed: 06/19/2024 11:06 HANNAH STEINBERG [facility]
--- OUTSIDE RECORDS SUMMARY | 2024-08-08 16:10 | XMS_ITS | Clinical Summary ---
Author Organization [facility] Address [address] [place] [address] Care Team Providers Care Termite Control Representative Name Role Phone Unavailable Primary Care Provider Unavailabl e Social History Tobacco Use Types Packs/Day Years Used Date Smoking Tobacco: Never Assessed Sex and Gender Information Value Date Recorded Sex Assigned at Male 07/01/2018 1:18 PM EST Legal Sex Male 5:04 PM EDT Gender Identity Not on file Sexual Orientation Not on file Plan of Treatment Health Maintenance Due Date Last Done Comments Comprehensive Annual Visit 1974 Depression Screening 1986 HIV Screening 1992 Hepatitis C Screening 1992 DTaP/Tdap/Td Vaccines (1 - Tdap) 1993 Hepatitis B Vaccines (1 of 3 - 19+ 3-dose series) 1993 CT Colonography 2019 Colonoscopy 2019 Colorectal Cancer Screening 2019 FIT-DNA 2019 FIT 2019 FOBT 2019 Sigmoidoscopy 2019 Influenza Vaccine (#1) 2024 COVID-19 Vaccine ( - 2023-2 5 season) 2024 Pneumococcal Vaccine for Age s 50+ (1 of 1 - PCV) 2024 ZOSTER VACCINE (1 of 2) 2024 Adult RSV (60+ Years or Preg nic) (1 - 1-dose 75+ series) 2049 HIB Vaccines Aged Out No longer eligi ble based on patient's age to complete this topic HPV Vaccines Aged Out No longer eligi ble based on patient's age to complete this topic Hepatitis A Vaccines Aged Out No long er eligible based on patient's age to complete this topic IPV Vaccines Aged Out No longer eligi ble based on patient's age to complete this topic Meningococcal B Vaccine Aged Out No l onger eligible based on patient's age to complete this topic Meningococcal Conjugate (ACW Y) Vaccine Aged Out No longer eligible b ased on patient's age to complete this topic Rotavirus Vaccines Aged Out No longer eligible based on patient's age to complete this topic
--- OUTSIDE RECORDS SUMMARY | 2024-08-08 16:10 | XMS_ITS | Encounter Summary ---
Author Name [facility] [place] [facility] [place] [facility] [place] Address [address] [place] [address] Care Team Providers Care Drum Sander Setter Name Role Phone TIAGO SHIPMAN Primary Care Provider Unavailabl e Selected Encounter This section includes the information on record at [place] for the Encounter. Date/Time Encounter Type Encounter Description Reason Provider Source Apr 09, 2024 01:00 PM OFF/OP EST OCTOBER X REQ PHY/QHP PRIMARY CARE/MEDICINE ICD-10-CM R05.9 Cough, unspecified FAMBLE,CLAULET LENCHOA YUDI IHMichelle Encounter Template Text not used by [place] Assessments - Encounter Diagnoses This section includes the primary and secondary diagnoses documented for the Encounter. Date/Time Primary/Secondary Diagnosis Diagnosis Name Provider Source Apr 09, 2024 03:29 PM PRIMARY Cough, unspecified FAMBLE,ELAULET LENCHOA YUDI [facility] Apr 09, 2024 03:29 PM SECONDARY Essential (primary) hypertension SHARON,BLANCAT MULU [facility] Plan of Treatment: Future Appointments (+ 6 months) and Future Tests (+/- 45 days) The Plan of Treatment section includes future care activities for the patient from all [place] treatmentfacilities. This section includes future appointments and future orders which are active, pending or scheduled. Future Appointments This section includes appointments that were scheduled to occur 6 months from the date of the Encounter, up to a maximum of 20 appointments. The data comes from all [place] treatment facilities. Appointment Date/Time Appointment Type Appointme nt Facility Name Jun 19, 2024 11:00 AM AMBULATORY - MEDICINE [facility] Jun 20, 2024 10:15 AM AMBULATORY - NONE [facility] Jul 05, 2024 02:30 PM AMBULATORY - NONE [facility] Jul 10, 2024 02:30 PM AMBULATORY - NONE [facility] Aug 10, 2024 02:30 PM AMBULATORY - NONE [facility] Social History: Smoking Status (Most current) and Tobacco Use (All prior to encounter date) This section includes the most current, and the historical, smoking and tobacco- related health factors from the [place] facility where the Encounter took place. Current Smoking Status This section includes the most current smoking, or tobacco-related health factor, from the [place] facility where the Encounter took place. Date/Time Current Smoking Status Comment Janine ity Dec 22, 2023 09:30 AM VA-TOBACCO FORMER USER [facility] Tobacco Use History This section includes a history of the smoking, or tobacco-related health factors, that were collected on or before the date of the Encounter. The data comes from the [place] facility where the Encounter took place. Date/Time Smoking Status/Tobacco Use Comment F acility Dec 22, 2023 09:30 AM VA-TOBACCO QUIT 5 TO < 15 YRS [facility] Jun 28, 2022 10:00 AM VA-TOBACCO FORMER USER [facility] Jun 28, 2022 10:00 AM VA-TOBACCO QUIT 1 TO < 5 YRS [facility] Sep 15, 2020 10:00 AM VA-TOBACCO DOESNT USE WI 30 MIN WAKEUP [facility] Sep 15, 2020 10:00 AM VA-TOBACCO USE 30 YEARS OR MORE [facility] Sep 15, 2020 10:00 AM VA-TOBACCO USE ADVICE [facility] Sep 15, 2020 10:00 AM VA-TOBACCO USE TRAINING INTERN NO [facility] Sep 15, 2020 10:00 AM VA-TOBACCO USE MED NOTIFY PROVIDER [facility] Sep 15, 2020 10:00 AM VA-TOBACCO USER EVERY DAY [facility] Jul 12, 2019 01:45 PM VA-TOBACCO DOESNT USE WI 30 MIN WAKEUP [facility] Jul 12, 2019 01:45 PM VA-TOBACCO USE 30 YEARS OR MORE [facility] Jul 12, 2019 01:45 PM VA-TOBACCO USE ADVICE [facility] Jul 12, 2019 01:45 PM VA-TOBACCO USE TRAINING INTERN YES wants to quit [facility] Jul 12, 2019 01:45 PM VA-TOBACCO USE MED NOTIFY PROVIDER wants to quit [facility] Jul 12, 2019 01:45 PM VA-TOBACCO USER EVERY DAY [facility] Feb 25, 2017 12:01 PM V7-HX TOBACCO USER >12 MONTHS <7 YEARS [facility] Radiology Reports: +/- 30 days of the encounter Radiology Reports For cases when an order for radiology services may have been completed prior to the date of the Encounter, the report list includes the Radiology Reports that were completed up to 30 days before dateof the Encounter. For cases when an order for radiology services may have been completed after the date of the Encounter, the report list also includes the Radiology Reports that were completed up to30 days after date of the Encounter. The data comes from all [place] treatment facilities. Date/Time Radiology Report Provider Source Mar 12, 2024 09:13 AM LDCT LCS 1, 3 OR 6 MONTH FOLLOW UP: THAD CORTES MARY [id number] -[id number] M Exm Date: MAR 12, 2024@09:13 Req Phys: TIAGO SHIPMAN Loc: ROM PACT NURSE 4 (Req'g Loc) Img Loc: CAT-SCAN Service: [place] [address] (Case [id number] COMPLETE) LDCT LCS 1, 3 OR 6 MONTH FOLLOW U(CT Detailed) CPT:36755 Proc Modifiers : BILATERAL EXAM Reason for Study: Hx of smoking Clinical History: If [place] is not able to schedule procedure within 28 days of the Desired Date, does the Opt-in to Community Care? Yes Is this study related to a time-sensitive cancer diagnosis? No Is this study related to time-sensitive surgical planning? No Is this study related to a critical or time-sensitive lab result? No Follow-Up (Lung nodule(s) identified on prior screening), CT Lung Screening F/U [id number], ICD10 R91.1, R91.8 Order is for NON-CONTRAST CT of the Chest HX of Smoking: ICD-10 Code: Z87.891 Report Status: Verified Date Reported: MAR 13, 2024 Date Verified: MAR 13, 2024 Shell Sorter E-Sig: Report: HISTORY Hx of smoking COMPARISON 01/27/2023 CT. TECHNIQUE Screening protocol, low dose, non-contrast CT chest was performed at the local facility in accordance with Lung-Rads 2021. Additional coronal and sagittal reconstructions. MIP reconstructions also obtained. This examination was performed for the specific purposes of lung cancer screening and is not an alternative to diagnostic chest CT. FINDINGS INDEX NODULE None. OTHER NODULES Ground-glass right lower lobe nodule previously seen is not seen on the current examination.. LUNG/AIRWAY FINDINGS Mild linear scarring in the right lower lobe unchanged. Calcified left lower lobe granuloma. EMPHYSEMA None. HEART/MEDIASTINUM/LYMPH NODES No significant abnormalities. CORONARY ARTERY CALCIFICATIONS Mild., stable UPPER ABDOMEN Unremarkable. OSSEOUS No acute abnormalities. OTHER Gynecomastia. Splenic artery calcifications.. Electronically signed by: Hal Martin MD (March 13 2024 11:50 PM EST) Impression: 1. LUNG-RADS SCORE: 1 - Negative 2. RECOMMENDATION: Management 12-month screening LDCT 3. LUNG-RADS MODIFIER: N/A. 4. OTHER: Granulomatous disease Primary Diagnostic Code: LUNGRADS 1: NEGATIVE Primary Interpreting Staff: OUTSIDE SERVICE RADIOLOGY, Staff Physician / RADIOLOGY,OUTSIDE SERVICE [facility] Encounter Notes: All associated encounter notes This section contains the clinical notes associated to the Encounter. Date/Time Encounter Note(s) Provider Source Apr 09, 2024 03:20 PM PHARMACY NOTE: LOCAL TITLE: NON VA MEDS PRESCRIPTIONS STANDARD TITLE: PHARMACY NOTE DATE OF NOTE: APR 09, 2024@15:20 ENTRY DATE: APR 09, 2024@15:21:06 AUTHOR: TIAGO SHIPMAN COSIGNER: URGENCY: STATUS: COMPLETED NON VA MED PRESCRIPTIONS ----- [address] [address] Date: APR 09, 2024 THAD CORTES [facility] [address] [place], [place] [address] Patient : Jun Allergies on File: MEDROL, SERTRALINE, LISINOPRIL 1. LOSARTAN TAB 50MG TAKE ONE TABLET BY MOUTH EVERY DAY X 14 days -Disp 14 -No refill ___ Prescriber's Signature TIAGO SHIPMAN CRISELDA#: [id number] NOTE: C-II MEDICATIONS REQUIRE A SEPARATE PRESCRIPTION ==== TIAGO SHIPMAN [facility] Apr 09, 2024 01:18 PM PRIMARY CARE NURSI NG NOTE: LOCAL TITLE: NURSING PRIMARY CARE INTAKE NOTE STANDARD TITLE: PRIMARY CARE NURSING NOTE DATE OF NOTE: APR 09, 2024@13:18 ENTRY DATE: APR 09, 2024@13:18:36 AUTHOR: CYNTHIA HERRERA EXP COSIGNER: URGENCY: STATUS: COMPLETED PC NURSING OUTPATIENT INTAKE NOTE Type of Visit: Unscheduled Nurse Visit Patient Age: 48 Two patient identifiers verified: Full Name - pt verbalized, Full Social Security Number Chief Complaint: requesting PFT, chronic cough x 1 year Pc Pact Nursing Protocols Reviewed Vitals: T: 97.7 F [36.5 C] (04/09/2024 13:14) P: 88 (04/09/2024 13:14) RR: 18 (04/09/2024 13:14) BP: 150/107 (04/09/2024 13:14) Ht: 70 in [177.8 cm] (04/09/2024 13:14) Wt: 244.9 lb [111.08 kg] (04/09/2024 13:14) Pain: 0 (04/09/2024 13:14) BODY MASS INDEX APR 09, 2024@13:14:23 35.2 DEC 22, 2023@10:09:58 32.8 SEP 05, 2023@09:29:02 32.8 Allergies: MEDROL, SERTRALINE Language The [place]'s primary language is Urdu. Wander Risk Screen has one or more of the risk factors below. No Is legally committed. Has a court-appointed legal guardian. Is considered dangerous to self or others. Has a history of wandering or being missing. Lacks cognitive ability (permanently or temporarily) to make relevant decisions. Has physical limitations that increase the risk. Are there any positive (yes) responses to the wander risk screening questions? No Martinez Fall Scale Martinez Fall Scale: The Martinez Fall scale was performed and score was 0. This is indicative of low risk of falls. History of falling: immediate or within 3 months? No Secondary diagnosis: No Ambulatory aid: None/bedrest/nurse assist Intravenous therapy/Heparin lock: No Gait/Transferring: Normal/bed rest/immobile Mental Status: Oriented to own ability/knows own limitations Advance Healthcare Planning: You have the right to accept or refuse any medical treatment. You have the right to create a Power of Database Analyst for Healthcare where you name the person you want to make healthcare decisions for you if you become unable to make decisions for yourself. In a Power of Database Analyst for Healthcare you may state whether you want life-sustaining treatment to be withheld or withdrawn in certain circumstances such as permanent unconsciousness or a terminal illness. A Living Will is another way you may state whether you want life-sustaining treatment to be withheld or withdrawn in the event of terminal illness or permanent unconsciousness. Patient desires information on Advance Directive Is there anything that makes it hard for you to take care of your health? No How is your stress level today? My life is not perfect, but not the worst. I have some stress, but I can handle it. Interventions: Pulse Ox: Room Air 97 Is the patient taking any NEW [id number], Non-VA, or Herbal medications? No Are there any changes in medication since last visit? No [place] presented to clinic requesting PFT to be ordered due to intermittent SOB and chronic cough x 1 year. Bp elevated in clinic, 150/107. Gilberto recheck 134/96. states that he did not take BP medication this morning. Denies CP, dizziness, H/A, or vision disturbanaces. Intermittent CP and dizziness, reports that Shactor Helper thinks it may be related to BP, next appt with Shactor Helper next year. 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 PCP alerted. Lisinopril D/C. amlodipine increased to 10 mg. Losartan 50 mg po qd added. SS faxed to [facility] with voucher. Advised that PFT ordered. CLINICAL REMINDER ACTIVITY/PLAN OF CARE ABUSE/NEGLECT NURSE: ABUSE AND NEGLECT SCREENING Do you feel safe in your living environment? Yes During the interview today with , I observed no symptoms of abuse or neglect. Influenza Immunization: Deferral / Refusal The patient declines to receive the recommended dose of seasonal influenza vaccine. Immunization: INFLUENZA, UNSPECIFIED FORMULATION Refusal Reason: PATIENT DECISION Patient refuses all immunization(s) in the FLU group Date Documented: 04/09/24 15:30 HTN Assess for Elevated BP>=140/90: Repeat blood pressure: 134/96 The patient's medication regimen was adjusted to improve blood pressure control. Comment: amlodipine 10mg, losartan 50mg, d/c lisinopil /shwetha/ CYNTHIA BAGLEY RN REGISTERED NURSE Signed: 04/09/2024 15:34 Receipt Acknowledged By: 04/10/2024 10:17 /shwetha/ CYNTHIA DEL RIO NP [facility]
--- OUTSIDE RECORDS SUMMARY | 2024-08-08 16:10 | XMS_ITS | Encounter Summary ---
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 Date/Time Encounter Type Encounter Description Reason Provider Source Aug 29, 2023 02:00 PM PSYTX W PT 60 MINUTES [facility] - IND ICD-10-CM F43.10 Post-traumatic stress disorder, unspecified SANDEEP LUGO Michelle Encounter Template Text not used by [place] Assessments - Encounter Diagnoses This section includes the primary and secondary diagnoses documented for the Encounter. Date/Time Primary/Secondary Diagnosis Diagnosis Name Provider Source Aug 29, 2023 03:15 PM PRIMARY Post-traumatic stress disorder, unspecified SANDEEP LUGO [facility] Plan of Treatment: Future Appointments (+ 6 months) and Future Tests (+/- 45 days) The Plan of Treatment section includes future care activities for the patient from all [place] treatmentfacilities. This section includes future appointments and future orders which are active, pending or scheduled. Future Appointments This section includes appointments that were scheduled to occur 6 months from the date of the Encounter, up to a maximum of 20 appointments. The data comes from all [place] treatment facilities. Appointment Date/Time Appointment Type Appointme nt Facility Name Aug 30, 2023 09:45 AM AMBULATORY - [facility] Sep 05, 2023 09:30 AM AMBULATORY - NONE [facility] Dec 22, 2023 09:30 AM AMBULATORY - NONE [facility] Jan 16, 2024 09:30 AM AMBULATORY - NONE [facility] Jan 17, 2024 04:00 PM AMBULATORY - NONE [facility] Lab Results: +/- 30 days of the encounter This section includes the Chemistry and Hematology Lab Results on record with [place] for the patient. Radiology Reports and Pathology Reports are provided separately, in subsequent sections. Lab Results This section contains the Chemistry/Hematology Results that were resulted 30 days before or 30 daysafter the date of the Encounter. Date/Time Source Result Type Result - Unit Interpretation Reference Range Comment Sep 05, 2023 10:29 AM [facility] VIT. D,25-OH,TOTAL Specimen Type: SERUM No comment entered. Ordering Provider: TIAGO SHIPMAN Report Released Date/Time: Sep 05, 2023 10:23 AM Reporting Lab: [address] [place] [address] Performing Lab: [address] [place] [address] VIT. D,25-OH,TOTAL 23.3 ng/mL L 30.0-100.0 Aug 30, 2023 09:44 AM [facility] MICROALBUMIN URINE PANEL (NEW) Specimen Type: URINE ([id number]) Comment: Unable to perform calculation Ordering Provider: TIAGO SHIPMAN Report Released Date/Time: Aug 19, 2023 10:28 AM Reporting Lab: [address] [place] [address] Performing Lab: [address] [place] [address] M-ALBUMIN <0.7 mg/dL L Not Established M-ALB/CREAT RATIO comment mg/g 0.2-30.0 CREAT. (OF M-ALB PANEL) 89.6 mg/dL Not Established Aug 30, 2023 09:44 AM [facility] HEMOGLOBIN A1C Specimen Type: BLOOD Comment: Values obtained from A1C measurements can vary. For typical A1C assays, a reported value of 7.0 could actually be between 6.72 and 7.28 if measured by a reference method. A reported value of 9.0 could actually be between 8.73 and 9.27. Ref: http://www.ngs p.org/CAPdata. asp Ordering Provider: TIAGO SHIPMAN Report Released Date/Time: Aug 19, 2023 10:28 AM Reporting Lab: [address] [address] Performing Lab: [address] [address] HEMOGLOBIN A1C 5.3 4.0-5.6 Aug 30, 2023 09:44 AM [facility] LIPID PANEL Specimen Type: SERUM No comment entered. Ordering Provider: TIAGO SHIPMAN Report Released Date/Time: Aug 19, 2023 10:28 AM Reporting Lab: [address] [address] Performing Lab: [address] [address] CHOLESTEROL 183 mg/dL 100-200 TRIGLYCERIDE 170 mg/dL H 0-149 LDL-CHOL(CALCUL ATED) 109 mg/dL 65-160 LDL/HDL RATIO 3.0 {ratio} H 0.0-2.5 VLDL-CHOLESTERO L(CALC) 34 mg/dL 5-50 DIRECT HDL 40 mg/dL >40 Aug 30, 2023 09:44 AM [facility] CBC (WITHOUT DIFF.) Specimen Type: BLOOD No comment entered. Ordering Provider: TIAGO SHIPMAN Report Released Date/Time: Aug 19, 2023 10:28 AM Reporting Lab: [address] [address] Performing Lab: [address] [address] WBC 6.2 10*3/uL 4.0-11.0 RBC 5.06 10*6/uL 4.63-6.08 HGB 16.2 g/dL 13.7-17.5 HCT 46.1 40.1-51.0 MCV 91.1 fL 80.0-100.0 MCH 32.0 pg 25.7-32.2 MCHC 35.1 g/dL 32.0-37.0 PLT 236 10*3/uL 150-400 MPV 10.0 fL 9.4-12.4 RDW 11.9 11.6-16.5 NRBCRE % 0.0 0.0-0.2 NRBC # 0.00 10*3/uL 0.00-0.01 Aug 30, 2023 09:44 AM [facility] COMPREHENSIVE METABOLIC PANEL Specimen Type: SERUM No comment entered. Ordering Provider: TIAGO SHIPMAN Report Released Date/Time: Aug 19, 2023 10:28 AM Reporting Lab: [address] [address] Performing Lab: [address] [address] CREATININE 0.97 mg/dL 0.50-1.20 UREA NITROGEN 13 mg/dL 7-25 GLUCOSE 133 mg/dL H 70-110 SODIUM 136 mmol/L 136-145 POTASSIUM 4.0 mmol/L 3.6-5.1 CHLORIDE 102 mmol/L 99-111 CO2 24 mmol/L 22-32 CALCIUM 8.8 mg/dL 8.6-10.3 PROTEIN,TOTAL 6.8 g/dL 6.4-8.9 ALBUMIN 4.3 g/dL 3.5-5.2 TOTAL BILIRUBIN 0.9 mg/dL 0.3-1.2 ALK PHOS (TOTAL) 82 [IU]/L 34-104 AST (SGOT) 18 [IU]/L 13-39 ALT (SGPT) 27 [IU]/L 7-52 GLOBULIN 2.5 g/dL L 2.6-4.0 ALB/GLOB 1.72 {ratio} H 0.95-1.59 ANION GAP 10 mmol/L 5-12 UREA NITROGEN/CREATI NINE RATIO 13.4 {ratio} 12.0-20.0 EGFR CKD-EPI 96 mL/min >=60 Encounter Notes: All associated encounter notes This section contains the clinical notes associated to the Encounter. Date/Time Encounter Note(s) Provider Source Aug 29, 2023 02:54 PM MENTAL HEALTH SOCI AL WORKER NOTE: LOCAL TITLE: MH SOCIAL WORK PROGRESS NOTE STANDARD TITLE: MENTAL HEALTH SAWING AND ASSEMBLY SUPERVISOR NOTE DATE OF NOTE: AUG 29, 2023@14:54 ENTRY DATE: AUG 29, 2023@14:54:08 AUTHOR: IGNACIO LUGO EXP COSIGNER: URGENCY: STATUS: COMPLETED Modality Length of Session: 51 Minutes Video Telehealth Modality of Care: Video Telehealth Patient Identification (select all): Patient's identity verified using two identifiers. Is someone other than the patient calling? No Patient Contact Details: Best contact number for backup/emergency communication with patient: Home Patient Location/Surroundings During Visit: [place] Facility: [facility] Emergency contact number for onsite/patient location staff: [phone] Patient confirms location is private and safe for visit? Yes Visit conducted by clinical video telehealth. Patient verbally consented for [facility] Video Connect visit Location/emergency number confirmed. DIAGNOSIS(ES)/TARGETS OF INTERVENTION: Depression (r/o Bi-Polar) CHIEF COMPLAINT: I made progress since we last spoke Subjective: Today's session was a VVC session. The patient stated he continues to have periodical nightmares. He reported his nightmares are normally centered arond his family. He shared occurrances from his past that he feels has contributed to these dreams. Offered empathetic listening and interactive feedback Intervention: Supportive therapy was implemented, including empathic reflection and support, affirmation and conveyance of positive regard. The Vet was asked about any suicidal/homicidal ideations, which were denied. The Vet was reminded about the options to call the [facility] Crisis Line or 911 or to walk into the [place]/local emergency room if suicidal/homicidal ideations emerge between sessions, and the Vet expressed a willingness to pursue one of these emergency courses of action if any suicidal/homicidal ideations emerge/worsen between sessions. MENTAL STATUS/BEHAVIORAL OBSERVATIONS: - Appearance/Dress: appropriate - Attention/Concentration: Sufficient during session - Memory: No observed problems during session - Orientation: oriented x4 - Behavior: Normal/Unremarkable - Speech: Normal rate, normal volume, and normal tone - Eye-contact/relational style: appropriate, engaged - Psychomotor Activity: no abnormalities noted - Posture/Gait: no abnormalities noted - Reported Mood: Okay - Affect in Session: Appropriate to conversation content; normal range/restricted/constricte d/blunted/flat - Thought Process: Coherent, relevant, logical - Thought Content: Suicidal ideations: None reported Homicidal ideations: None reported Delusional thought content: None evident Hallucinations: None evident Other thought content: ruminative/preoccupied/broo ding/N/A - Judgment: Fair-good - Insight: Fair-good ASSESSMENT: Safety Assessment: The Vet exhibits protective factors that include a support network, current employment, , future-orientation, verbalized hopefulness about the future, denial of current/recent substance intoxication, absence of past suicide behaviors, consistent denial of suicidal/homicidal thought content, and good judgement. DSM-5 Diagnosis: depression (r/o Bi-Polar) PLAN: The Vet was encouraged to continue using the skills she acquired. The Vet has been informed about limitations of confidentiality, including disclosure of information in instances of imminent harm to self/others, decreased self-care to the point of life-endangerment, or instances of abuse/neglect of vulnerable person; insertion of disclosed information into the Vet's medical record and that other agency personnel with a need to know may view this information; instances where record release may be court-ordered; and routine consultations amongst [place] healthcare providers to ensure optimal care. The Vet has been informed about voluntary nature of treatment except in instances in which involuntary treatment is authorized by law. The Vet has been informed that this provider is not a medical provider and does not render medical advice. The has been provided with this card writer hand's direct office phone/extension for non-emergent questions/concerns but the Vet was informed not to call this card writer hand in the case of an emergency (e.g. suicidal/homicidal ideations) as this card writer hand is not evp chief exploration officer and often cannot answer phone calls due to provision of services to other Veterans; instead, the [place] was instructed about the emergency procedures of calling the Veterans Crisis Line (number provided), calling 911, walking into the [facility] ER, or walking into the nearest ER. The verbalized an understanding of all of the above information and consented to proceed with mental health services. /shwetha/ IGNACIO LUGO Signed: 09/01/2023 08:41 IGNACIO LUGO [facility]
--- OUTSIDE RECORDS SUMMARY | 2024-08-08 16:10 | XMS_ITS | Encounter Summary ---
Author Name [facility] Organization [facility] Address [address] [place] [address] Care Team Providers Care Floor Surfacer Name Role Phone TIAGO SHIPMAN Primary Care Provider Unavailabl e Selected Encounter This section includes the information on record at [facility] for the Encounter. Date/Time Encounter Type Encounter Description Reason Pro vider Source Dec 22, 2023 09:18 AM Outpatient Encounter PRIMARY CARE/MEDICINE I[facility] Encounter Template Text not used by [facility] Plan of Treatment: Future Appointments (+ 6 months) and Future Tests (+/- 45 days) The Plan of Treatment section includes future care activities for the patient from all [place] treatmentfacilities. This section includes future appointments and future orders which are active, pending or scheduled. Future Appointments This section includes appointments that were scheduled to occur 6 months from the date of the Encounter, up to a maximum of 20 appointments. The data comes from all [place] treatment facilities. Appointment Date/Time Appointment Type Appointme nt Facility Name Jan 16, 2024 09:30 AM AMBULATORY - NONE [facility] Jan 17, 2024 04:00 PM AMBULATORY - [facility] Mar 12, 2024 08:00 AM AMBULATORY - NONE [facility] Apr 09, 2024 01:00 PM AMBULATORY NONE [facility] Jun 19, 2024 11:00 AM AMBULATORY - [facility] Jun 20, 2024 10:15 AM AMBULATORY - [facility] Social History: Smoking Status (Most current) and Tobacco Use (All prior to encounter date) This section includes the most current, and the historical, smoking and tobacco- related health factors from the [facility] where the Encounter took place. Current Smoking Status This section includes the most current smoking, or tobacco-related health factor, from the [facility] where the Encounter took place. Date/Time Current Smoking Status Comment Facil ity Dec 22, 2023 09:30 AM VA-TOBACCO FORMER USER [facility] Tobacco Use History This section includes a history of the smoking, or tobacco-related health factors, that were collected on or before the date of the Encounter. The data comes from the [place] facility where the Encounter took place. Date/Time Smoking Status/Tobacco Use Comment F acility Dec 22, 2023 09:30 AM VA-TOBACCO QUIT 5 TO < 15 YRS [facility] Jun 28, 2022 10:00 AM VA-TOBACCO FORMER USER [facility] Jun 28, 2022 10:00 AM VA-TOBACCO QUIT 1 TO < 5 YRS [facility] Sep 15, 2020 10:00 AM VA-TOBACCO DOESNT USE WI 30 MIN WAKEUP [facility] Sep 15, 2020 10:00 AM VA-TOBACCO USE 30 YEARS OR MORE [facility] Sep 15, 2020 10:00 AM VA-TOBACCO USE ADVICE [facility] Sep 15, 2020 10:00 AM VA-TOBACCO USE ENGAGEMENT EXECUTIVE NO [facility] Sep 15, 2020 10:00 AM VA-TOBACCO USE MED NOTIFY PROVIDER [facility] Sep 15, 2020 10:00 AM VA-TOBACCO USER EVERY DAY [facility] Jul 12, 2019 01:45 PM VA-TOBACCO DOESNT USE WI 30 MIN WAKEUP [facility] Jul 12, 2019 01:45 PM VA-TOBACCO USE 30 YEARS OR MORE [facility] Jul 12, 2019 01:45 PM VA-TOBACCO USE ADVICE [facility] Jul 12, 2019 01:45 PM VA-TOBACCO USE ENGAGEMENT EXECUTIVE YES wants to quit [facility] Jul 12, 2019 01:45 PM VA-TOBACCO USE MED NOTIFY PROVIDER wants to quit [facility] Jul 12, 2019 01:45 PM VA-TOBACCO USER EVERY DAY [facility] Feb 25, 2017 12:01 PM V7-HX TOBACCO USER >12 MONTHS <7 YEARS [facility] Encounter Notes: All associated encounter notes This section contains the clinical notes associated to the Encounter. Date/Time Encounter Note(s) Provider Source Dec 22, 2023 12:28 PM CARDIOLOGY PROCEDU RE NOTE: LOCAL TITLE: CARDIOLOGY PROCEDURE ECG STANDARD TITLE: CARDIOLOGY PROCEDURE NOTE DATE OF NOTE: DEC 22, 2023@12:28:23 ENTRY DATE: DEC 22, 2023@12:28:23 AUTHOR: CLINICAL,DEVICE PRO EXP COSIGNER: URGENCY: STATUS: COMPLETED PROCEDURE SUMMARY CODE: Machine Resulted DATE/TIME PERFORMED: DEC 22, 2023@09:43:5 DOCUMENT IN [facility] SEE FULL REPORT IN [facility] SIGNATURE NOT REQUIRED SEE SIGNATURE IN [facility] ([employer]) AUTO-INSTRUMENT DIAGNOSIS Procedure: 40492.1 Heart Rate: 77 87608.2 RR Interval: 779 67571.4 P-R Interval: 164 06478.5 QRSD Interval: 88 12825.6 QT Interval: 388 80070.7 QTC Interval: 440 34952.8 P Elsie: 60 16640.9 QRS Elsie: -6 78241.1 T Wave Elsie: 26 [id number] EKG Severity: - NORMAL ECG - 86242 EKG Impression: SINUS RHYTHM 17156 EKG Impression: normal P axis, V-rate 50-99 Administrative Closure: 12/22/2023 by: DEVICE PROXY SERVICE CLINICAL Clinical,Device Proxy Service CLINICAL,DEVICE PROXY SERVICE [facility]
--- OUTSIDE RECORDS SUMMARY | 2024-08-08 16:10 | XMS_ITS | Encounter Summary ---
Author Name [facility] Organization [facility] Address [address] [place] [address] Care Team Providers Care [employer] Crewmember Name Role Phone SUE MOSER Primary Care Provider Unavailabl e Selected Encounter This section includes the information on record at ID for the Encounter. Date/Time Encounter Type Encounter Description Reason Provider Source Sep 05, 2023 09:30 AM OFFICE O/P EST MOD 30 MIN PRIMARY CARE/MEDICINE ICD-10-CM Z77.29 Contact with and exposure to other hazardous substances FARIHA MARTIN Michelle Encounter Template Text not used by ID Assessments - Encounter Diagnoses This section includes the primary and secondary diagnoses documented for the Encounter. Date/Time Primary/Secondary Diagnosis Diagnosis Name Provider Source Sep 05, 2023 10:33 AM PRIMARY Contact with and exposure to other hazardous substances SUE MOSER [facility] Sep 05, 2023 10:33 AM SECONDARY Post-traumatic stress disorder, unspecified SUE MOSER [facility] Plan of Treatment: Future Appointments (+ 6 months) and Future Tests (+/- 45 days) The Plan of Treatment section includes future care activities for the patient from all ID treatmentfacilities. This section includes future appointments and future orders which are active, pending or scheduled. Future Appointments This section includes appointments that were scheduled to occur 6 months from the date of the Encounter, up to a maximum of 20 appointments. The data comes from all ID treatment facilities. Appointment Date/Time Appointment Type Appointme nt Facility Name Dec 22, 2023 09:30 AM AMBULATORY - NONE [facility] Jan 16, 2024 09:30 AM AMBULATORY - NONE [facility] Jan 17, 2024 04:00 PM AMBULATORY - NONE [facility] Lab Results: +/- 30 days of the encounter This section includes the Chemistry and Hematology Lab Results on record with [facility] for the patient. Radiology Reports and Pathology Reports are provided separately, in subsequent sections. Lab Results This section contains the Chemistry/Hematology Results that were resulted 30 days before or 30 daysafter the date of the Encounter. Date/Time Source Result Type Result - Unit Interpretation Reference Range Comment Sep 05, 2023 10:29 AM [facility] VIT. D,25-OH,TOTAL Specimen Type: SERUM No comment entered. Ordering Provider: SUE MOSER Report Released Date/Time: Sep 05, 2023 10:23 AM Reporting Lab: [address] [place] [address] Performing Lab: [address] [place] [address] VIT. D,25-OH,TOTAL 23.3 ng/mL L 30.0-100.0 Aug 30, 2023 09:44 AM [facility] MICROALBUMIN URINE PANEL (NEW) Specimen Type: URINE ([id number]) Comment: Unable to perform calculation Ordering Provider: SUE MOSER Report Released Date/Time: Aug 19, 2023 10:28 AM Reporting Lab: [address] [place] [address] Performing Lab: [address] [place] [address] M-ALBUMIN <0.7 mg/dL L Not Established M-ALB/CREAT RATIO comment mg/g 0.2-30.0 CREAT. (OF M-ALB PANEL) 89.6 mg/dL Not Established Aug 30, 2023 09:44 AM [facility] HEMOGLOBIN A1C Specimen Type: BLOOD Comment: Values obtained from A1C measurements can vary. For typical A1C assays, a reported value of 7.0 could actually be between 6.72 and 7.28 if measured by a reference method. A reported value of 9.0 could actually be between 8.73 and 9.27. Ref: http://www.ngs p.org/CAPdata. asp Ordering Provider: SUE MOSER Report Released Date/Time: Aug 19, 2023 10:28 AM Reporting Lab: [address] [address] [facility] [address] [facility] [address] HEMOGLOBIN A1C 5.3 4.0-5.6 Aug 30, 2023 09:44 AM [facility] LIPID PANEL Specimen Type: SERUM No comment entered. Ordering Provider: SUE MOSER Report Released Date/Time: Aug 19, 2023 10:28 AM Reporting [facility] [address] [facility] [address] Performing Lab: [address] [address] CHOLESTEROL 183 mg/dL 100-200 TRIGLYCERIDE 170 mg/dL H 0-149 LDL-CHOL(CALCUL ATED) 109 mg/dL 65-160 LDL/HDL RATIO 3.0 {ratio} H 0.0-2.5 VLDL-CHOLESTERO L(CALC) 34 mg/dL 5-50 DIRECT HDL 40 mg/dL >40 Aug 30, 2023 09:44 AM [facility] CBC (WITHOUT DIFF.) Specimen Type: BLOOD No comment entered. Ordering Provider: SUE MOSER Report Released Date/Time: Aug 19, 2023 10:28 AM Reporting Lab: [address] [address] Performing Lab: [address] [address] WBC 6.2 10*3/uL 4.0-11.0 RBC 5.06 10*6/uL 4.63-6.08 HGB 16.2 g/dL 13.7-17.5 HCT 46.1 40.1-51.0 MCV 91.1 fL 80.0-100.0 MCH 32.0 pg 25.7-32.2 MCHC 35.1 g/dL 32.0-37.0 PLT 236 10*3/uL 150-400 MPV 10.0 fL 9.4-12.4 RDW 11.9 11.6-16.5 NRBCRE % 0.0 0.0-0.2 NRBC # 0.00 10*3/uL 0.00-0.01 Aug 30, 2023 09:44 AM [facility] COMPREHENSIVE METABOLIC PANEL Specimen Type: SERUM No comment entered. Ordering Provider: SUE MOSER Report Released Date/Time: Aug 19, 2023 10:28 AM Reporting Lab: [facility] [address] [facility] [address] Performing Lab: [address] [address] CREATININE 0.97 mg/dL 0.50-1.20 UREA NITROGEN 13 [...] {ratio} 12.0-20.0 EGFR CKD-EPI 96 mL/min >=60 Social History: Smoking Status (Most current) and Tobacco Use (All prior to encounter date) This section includes the most current, and the historical, smoking and tobacco- related health factors from the ID facility where the Encounter took place. Current Smoking Status This section includes the most current smoking, or tobacco-related health factor, from the ID facility where the Encounter took place. Date/Time Current Smoking Status Comment Janine gustafson Jun 28, 2022 10:00 AM ID-TOBACCO FORMER USER [facility] Tobacco Use History This section includes a history of the smoking, or tobacco-related health factors, that were collected on or before the date of the Encounter. The data comes from the ID facility where the Encounter took place. Date/Time Smoking Status/Tobacco Use Comment Sam sauceda Jun 28, 2022 10:00 AM VA-TOBACCO QUIT 1 TO < 5 YRS [facility] Sep 15, 2020 10:00 AM VA-TOBACCO DOESNT USE WI 30 MIN WAKEUP [facility] Sep 15, 2020 10:00 AM VA-TOBACCO USE 30 YEARS OR MORE [facility] Sep 15, 2020 10:00 AM VA-TOBACCO USE ADVICE [facility] Sep 15, 2020 10:00 AM VA-TOBACCO USE CONTACT CENTER ASSISTANT NO [facility] Sep 15, 2020 10:00 AM VA-TOBACCO USE MED NOTIFY PROVIDER [facility] Sep 15, 2020 10:00 AM VA-TOBACCO USER EVERY DAY [facility] Jul 12, 2019 01:45 PM VA-TOBACCO DOESNT USE WI 30 MIN WAKEUP [facility] Jul 12, 2019 01:45 PM VA-TOBACCO USE 30 YEARS OR MORE [facility] Jul 12, 2019 01:45 PM VA-TOBACCO USE ADVICE [facility] Jul 12, 2019 01:45 PM VA-TOBACCO USE CONTACT CENTER ASSISTANT YES wants to quit [facility] Jul 12, 2019 01:45 PM VA-TOBACCO USE MED NOTIFY PROVIDER wants to quit [facility] Jul 12, 2019 01:45 PM VA-TOBACCO USER EVERY DAY [facility] Feb 25, 2017 12:01 PM V7-HX TOBACCO USER >12 MONTHS <7 YEARS [facility] Encounter Notes: All associated encounter notes This section contains the clinical notes associated to the Encounter. Date/Time Encounter Note(s) Provider Source Sep 07, 2023 08:08 AM PHYSICIAN LETTERS: LOCAL TITLE: TEST RESULTS NOTIFICATION STANDARD TITLE: PHYSICIAN LETTERS DATE OF NOTE: SEP 07, 2023@08:08 ENTRY DATE: SEP 07, 2023@08:08:06 AUTHOR: SUE MOSER COSIGNER: URGENCY: STATUS: COMPLETED TEST RESULTS NOTIFICATION Has ADDENDA [facility] [address] [place] [id number] SEP 07, 2023 THAD CORTES [address] [place], [place] [address] Dear Mona CORTES, I am following up from your recent office visit. The test results I reviewed are: ---- CBC PROFILE ---- BLOOD Aug 29 Reference 2023 09:44 Units Ranges WBC 6.2 K/cmm 4 - 11 RBC 5.1 M/cmm 4.63 - 6.08 HGB 16.2 g/dL 13.7 - 17.5 HCT 46.1 % 40.1 - 51 MCV 91.1 fL 80 - 100 MCH 32.0 pg 25.7 - 32.2 MCHC 35.1 g/dL 32 - 37 RDW 11.9 % 11.6 - 16.5 PLT 236 K/cmm 150 - 400 MPV 10.0 fL 9.4 - 12.4 ---- CHEM PROFILE ---- SERUM [facility] Reference 2023 09:44 Units Ranges CREAT 1.0 mg/dL .5 - 1.2 BUN 13 mg/dL 7 - 25 GLUCOSE 133 H mg/dL 70 - 110 NA 136 mmol/L 136 - 145 K 4.0 mmol/L 3.6 - 5.1 CL 102 mmol/L 99 - 111 CO2 24 mmol/L 22 - 32 CA 8.8 mg/dL 8.6 - 10.3 PO4 mg/dL 2.4 - 4.7 URIC AC mg/dL 2.4 - 7 PROTEIN 6.8 g/dL 6.4 - 8.9 ALBUMIN 4.3 g/dL 3.5 - 5.2 T. MICHEL 0.9 mg/dL .3 - 1.2 ALK SHAY 82 IU/L 34 - 104 LDH IU/L 115 - 223 AST 18 IU/L 13 - 39 CHOL 183 mg/dL 100 - 200 G-GTP IU/L 9 - 64 ANI GAP 10.0 mmol/L 5 - 12 GLOB 2.5 L g/dL 2.6 - 4 A/G 1.7 H RATIO .95 - 1.59 VERÓNICA OSM mOsmol/kg 275 - 300 BUN/CR 13.4 Ratio 12 - 20 ALT 27 IU/L 7 - 52 ---- URINE CHEMISTRY ---- URINE ([id number] Aug 29 Reference 2023 09:44 Units Ranges AMYLASE U/L 16 - 491 CA mg/dL COMMENT - COMMENT PO4 mg/dL COMMENT - COMMENT URIC AC mg/dL NA mmol/L 40 - 220 K mmol/L 25 - 125 CL mmol/L 85 - 250 OSMOLAR mOs/kg 273 - 1093 M-TP mg/L 0 - 1350 CREAT mg/dL COMMENT - COMMENT BUN mg/dL COMMENT - COMMENT ALBUMIN ACETONE mg/dL NEG - NEG CO2 mmol/L M-TP mg/dL 0 - 13.5 M-ALB <0.7 L mg/dL NOT- - ESTABLISHED M-ALB/C comment mg/G .2 - 30 ---- LIPID PROFILE ---- SERUM HDL CH TRIGLY LDL-CH VLDL C LDL/HD RISK F CHYLOM O C O H L A I Ref range low 45 0 65 5 0 Ref range high 75 149 160 50 2.5 mg/dL mg/dL mg/dL mg/dL ratio [c] Aug 30, 2023 09:44 170 H 109.0 34.0 3.00 H ---- MISCELLANEOUS TESTS ---- DATE TIME SPECIMEN TEST VALUE Ref ranges Sep 05, 2023@10:29 SERUM VIT. D,25-OH,TOTAL: 23.3 L ng/mL 30.0 - 100.0 Aug 30, 2023@09:44 URINE ([id number]) CREAT. (OF M-ALB PANEL): 89.6 mg/dL Ref: Not Established Aug 30, 2023@09:44 BLOOD HEMOGLOBIN A1C : 5.3 % 4.0 - 5.6 Aug 30, 2023:44 BLOOD NRBCRE %: 0.0 % 0.0 - 0.2 Aug 30, 2023:44 BLOOD NRBC #: 0.00 K/cmm 0.00 - 0.01 Aug 30, 2023:44 SERUM DIRECT HDL: 40 mg/dL Ref: >=40 Aug 30, 2023:44 SERUM EGFR CKD-EPI: 96 mL/min Ref: >=60 Your Vitamin D level is low indicating Vitamin D Deficiency. Recommend beginning ergocalciferol 50,000 units by mouth once per week for 12 weeks to improve level. After completing the 12 week course of ergocalciferol, please begin daily vitamin D3 (1000 units) supplement. This may be purchased over the counter or you can call the TAP line to request for me to order through ID pharmacy. Your triglycerides are elevated above normal. Recommend following a low cholesterol diet (eating less red meat and fried or processed foods, eating more vegetables, fruits, baked or grilled chicken, turkey or fish) and exercise to reduce level. Also, if you were not fasting (no food or drink for 8-10 hours) prior to lab, this may have falsely elevated this level. Plan to re-check fasting lipid panel at next visit. Please continue to use your fish oil to further reduce triglycerides. Eat Healthy -Eat smaller portions -Eat more fruits, vegetables and fiber -Reduce the amount of fast food, fried food and red meats. -Avoid adding salt to foods at the table. Use lemon juice instead of salt to season meats and vegetables. -Favor olive oil and other monosaturated fats over saturated oils. Fitness Counts -Try and exercise 30 minutes every day (brisk walking, treadmill, bike) Please call the [phone] if you have any questions or concerns about the information in this letter. We also encourage you to share these results with any other providers you may have. It was good seeing you. Sincerely, Sue Moser NP 09/07/2023 ADDENDUM STATUS: COMPLETED mailed. /es/ BETHEL TOMAS Signed: 09/07/2023 14:48 SUE MOSER [facility] Sep 05, 2023 09:57 AM PRIMARY CARE INITI AL EVALUATION NOTE: LOCAL TITLE: CBOC COMBAT CONTROL COMPREHENSIVE ASSESSMENT STANDARD TITLE: PRIMARY CARE INITIAL EVALUATION NOTE DATE OF NOTE: SEP 05, 2023@09:57 ENTRY DATE: SEP 05, 2023@09:57:51 AUTHOR: SUE MOSER EXP COSIGNER: URGENCY: STATUS: COMPLETED IS A 48 YO MALE WHO PRESENTS FOR Chief complaint: Here for routine check History of Present Illness: The presents to the CB for routine check, medication refill, labs and management of chronic medical issues. Past Medical History: Code Description Z77.29 Exposure to potentially hazardous substance ([facility] [id number]) Z77.29 Exposure to potentially hazardous substance (ICD-10-CM Z77.29) T14.91 Suicide attempt ([facility] [id number]) I10. Hypertension ([facility] [id number]) M54.5 Low back pain ([facility] [id number]) F43.10 Posttraumatic stress disorder ([facility] [id number]) 401.1 Benign hypertension ([facility] [id number]) 680.9 Boil ([facility] [id number]) 719.41 Pain in joint involving shoulder region (ICD-9-CM 719.41) 724.2 Chronic Low Back Pain (ICD-9-CM 724.2) V17.49 Family History of other Cardiovascular Diseases (ICD-9-CM V17.49) F43.10 History of post-traumatic stress disorder ([facility] [id number]) 305.1 Nicotine Dependence (ICD-9-CM 305.1) 724.3 Sciatica (ICD-9-CM 724.3) Past surgical history: Social: Tob: Denies ETOH:Denies Substance Abuse:Denies Marital Status: : [employer] Private sector providers: None Review Of Systems: General: Weight Loss.................negative Weight Gain.................negative Loss of Appetite............negative Fever.......................nega tive Night Sweats................negative Skin: Skin problems...............negative Moles changed color or size negative Ears: Tinnitis....................nega tive Ear pain....................negative Trouble hearing.............negative Nose/ Nasal congestion/drainage.. negative Allery: Allergies (Seasonal)........negative Allergies (Year Round)......negative Mouth/ Mouth Sores.................negative Throat: Wear Dentures...............negative Sore Throat or Hoarseness...negative Difficulty Swallowing.......negative Resp: Persistent cough............negative Productive cough............negative Coughing up blood...........negative Asthma or wheezing..........negative Dyspnea: SOB at Rest.................negative PATTON.........................nega tive Wake up SOB at night........negative Sleep > 1 pillow to prevent SOB at night.............negative Heart: Swelling of feet or ankles..negative Claudication Sx.............negative Chest Pain/Discomfort At rest.................negative With exertion...........negative GI: Indigestion or heartburn....negative Abdominal pain..............negative Nausea or vomiting..........negative Constipation................nega tive Diarrhea....................nega tive Blood with bowel movement...negative Frequent use of laxatives...negative Which laxative: : Nocturia > 1................negative Dysuria.....................nega tive Hesitancy or Dribbling......negative MS: Arthralgia/joint pains......negative Swollen or red joints.......negative Gout........................nega tive Neck or Back pain...........negative Medications: Active Outpatient Medications (including Supplies): Active Outpatient Medications Status ========= 1) BUPROPION HCL 150MG 12HR SA TAB TAKE ONE TABLET BY ACTIVE MOUTH EVERY DAY FOR DEPRESSION. 2) DICLOFENAC NA 1% TOP GEL APPLY LOWER EXTREMITIES: ACTIVE APPLY 4GM OF 1% GEL TO SKIN FOUR TIMES A DAY TO THE AFFECTED AREA(S) 3) FISH OIL 1000MG (500MG DHA/EPA) CAP TAKE ONE CAPSULE ACTIVE BY MOUTH EVERY DAY 4) LISINOPRIL 40MG TAB TAKE ONE TABLET BY MOUTH EVERY ACTIVE DAY FOR HEART/BLOOD PRESSURE 5) MELOXICAM 15MG TAB TAKE ONE TABLET BY MOUTH EVERY DAY ACTIVE FOR BACK PAIN 6) SUNSCREEN 30-50/PABA-FREE COMBO APPLY SMALL AMOUNT TO ACTIVE SKIN EVERY DAY FOR SUNSCREEN 7) TRIAMCINOLONE ACETONIDE 0.1% CREAM APPLY THIN FILM TO ACTIVE SKIN TWICE A DAY NEEDED - APPLY TO LOWER LEGS FOR ITCHY RASH, AVOID NORMAL SKIN Allergies: MEDROL, SERTRALINE Labs: [facility] - Chem & Hematology Collection DT Specimen Test Name Result Units Ref Range VITALS: 140/72 (09/05/2023 09:49)87 (09/05/2023 09:29)20 (09/05/2023 09:29)98.6 F [37.0 C] (09/05/2023 09:29)4 (09/05/2023 09:29) Physical Exam: Constitutional: Well developed well nourished patient in no apparent distress. Eyes:PERRLA, EOMI, non-anemic, not injected ENT: Orophyaranx Clear, Tympanic membranes clear bilaterally Neck: No masses, no bruixs Resp: Lungs clear to auscultation bilaterally no rubs, rhonchi, rales, wheezes CV: Normal S1S2 Regular Rate no murmers, rubs, or gallops. GI: Soft nontender, nondistended, normoactive bowel sounds no rebound or guarding, no hepatosplenomegaly Lymph: No cervical LAD, no pre or post auricular LAD MS: 5/5 strength throughout, 2/4 reflexes patellar and biceps Skin: No lesions Neuro: Grossly intact Psychiatric: Good judgement and insight. Alert and Oriented to person, place and time. Assessment/Plan: 1) Hypertension - advised on low fat/carb/salt diet and exercise -The risks associated with high bp discussed -Cont lisinopril 40mg po q day 2) PTSD -[place] follows up with Mental Health -Denies any SI/HI -Currently on BUPROPION 3) Vitamin D def -Labs ordered 4) Elevated triglycerides -Cont fish oil to further reduce triglycerides. -Tri [c] Aug 30, 2023 09:44 170 H 109.0 34.0 3.00 H 5) Hx of smoking -States quit smoking -LDCT 01/28/2023 ADDENDUM STATUS: COMPLETED Contacted [place] and informed that lower lobe groundglass nodule were noted on LDCT and RECOMMENDATION was [address] follow-up. Advised [place] to present to the nearest ED if having any SS of shortness of breath, chest pain, chest tightness, generalizied weakness, difficulty breathing or dizziness. [place] verbalizied understanding of instructions Impression: LUNG-RADS: 2: Benign. There is a 12 mm right lower lobe groundglass nodule. A few calcified granulomas are noted. RECOMMENDATION: [address] follow-up. LUNG-RADS MODIFIER: S. 1. Moderate coronary artery calcifications. -LDCT reordered per recommendation RTC:6-12 months [place] asked did I understand the important parts of your medical hx during our visit today? and inform them if any labs or x-rays done today we'll follow up within 7-14 days by mail or telephone to discuss results. Patient verbalized an understanding of all instructions/recommendations. CLINICAL REMINDER ACTIVITY/PLAN OF CARE Medication Reconciliation: Medication Information Management Essential Medication List for Review Essential Medication List for Review with Local Objects was used to complete this medication review. A written medication list was provided and reviewed with the patient/caregiver. MRT5 - Allergies/ADRs FACILITY ALLERGY/ADR -------- [facility] MEDROL [facility] SERTRALINE Elan [facility] PREDNISONE MRT1 - Med Reconciliation INCLUDED IN THIS LIST: Alphabetical list of active outpatient prescriptions dispensed from this ID (local) and dispensed from another ID or [facility] facility (remote) as well as inpatient orders (local pending and active), local clinic medications, locally documented non-VA medications, and local prescriptions that have or been discontinued in the past 90 days. Non-VA Meds Last Documented On: Apr 02, 2008 NOTE The display of VA prescriptions dispensed from another VA or [facility]D facility (remote) is limited to active outpatient prescription entries matched to National Drug File at the originating site and may not include some items such as investigational drugs, compounds, etc. NOT INCLUDED IN THIS LIST: Medications self-entered by the patient into personal health records (i.e. JustSpotted) are NOT included in this list. Non-VA medications documented outside this ID, remote inpatient orders (regardless of status) and remote clinic medications are NOT included in this list. The patient and provider must always discuss medications the patient is taking, regardless of where the medication was dispensed or obtained. -------- OUTPT BUPROPION HCL 150MG 12HR SA TAB (Status = Active) TAKE ONE TABLET BY MOUTH EVERY DAY FOR DEPRESSION. Rx# [id number] Last Released: 08/10/23 Qty/Days Supply: 90/90 Rx Expiration Date: 12/28/23 Refills Remainin OUTPT DICLOFENAC NA 1% TOP GEL (Status = Active) APPLY LOWER EXTREMITIES: APPLY 4GM OF 1% GEL TO SKIN FOUR TIMES A DAY TO THE AFFECTED AREA(S) Rx# [id number] Last Released: 01/01/23 Qty/Days Supply: 100/90 Rx Expiration Date: 12/28/23 Refills Remainin OUTPT FISH OIL 1000MG (500MG DHA/EPA) CAP (Status = Active) TAKE ONE CAPSULE BY MOUTH EVERY DAY Rx# [id number] Last Released: 07/27/23 Qty/Days Supply: 100/90 Rx Expiration Date: 02/10/24 Refills Remainin Indication: VITAMIN SUPPLEMENT OUTPT LISINOPRIL 40MG TAB (Status = Active) TAKE ONE TABLET BY MOUTH EVERY DAY FOR HEART/BLOOD PRESSURE Rx# [id number] Last Released: 08/10/23 Qty/Days Supply: 90/90 Rx Expiration Date: 12/28/23 Refills Remainin OUTPT MELOXICAM 15MG TAB (Status = Active) TAKE ONE TABLET BY MOUTH EVERY DAY FOR BACK PAIN Rx# [id number] Last Released: 12/29/22 Qty/Days Supply: 90/90 Rx Expiration Date: 12/28/23 Refills Remainin OUTPT SUNSCREEN 30-50/PABA-FREE COMBO (Status = Active) APPLY SMALL AMOUNT TO SKIN EVERY DAY FOR SUNSCREEN Rx# [id number] Last Released: 05/17/23 Qty/Days Supply: 240/90 Rx Expiration Date: 12/28/23 Refills Remainin Indication: FOR SUNSCREEN OUTPT TRIAMCINOLONE ACETONIDE 0.1% CREAM (Status = Active) APPLY THIN FILM TO SKIN TWICE A DAY NEEDED - APPLY TO LOWER LEGS FOR ITCHY RASH, AVOID NORMAL SKIN Rx# [id number] Last Released: 12/29/22 Qty/Days Supply: 80/30 Rx Expiration Date: 12/28/23 Refills Remainin Indication: STASIS DERMATITIS -------- SUPPLIES -------- PHARMACY TERMS AND POSSIBLE PATIENT ACTIONS INPT = ID inpatient order IV = ID intravenous medication OUTPT = ID outpatient prescription PHARMACY POSSIBLE PATIENT TERMS EXPLANATION ACTIONS -------- ACTIVE A prescription that can be If you have refills, filled at the local ID pharmacy. you may request a refill of this prescription from your ID pharmacy. CLINIC A medication you received during If you have questions a visit to a ID clinic or about this medication emergency department. contact your ID healthcare team. DISCONTINUED A prescription your provider has Contact your VA stopped. It is no longer healthcare team if you available to be sent to you or need more of this picked up at the ID pharmacy medication. window. A prescription which is too old Contact your VA to fill. This does not refer to healthcare team if you the expiration date of the need more of this medication in the container. medication. NON-VA A medication that came from If this medication someplace other than a VA information is pharmacy. This may be a incorrect or out of prescription from either the VA date, please tell your or non VA providers that was VA healthcare team. filled outside the VA. Or, it may be an [id number] (OTC), herbal, dietary supplements or sample medication. ON HOLD An active prescription that will Contact your VA not be filled until pharmacy pharmacy when you need resolves the issue. more of this medication. PARKED An active prescription that will Contact your VA not be filled until the patient pharmacy when you need requests it. this medication. PENDING This prescription order has been If you have been sent to the pharmacy for review instructed to start and is not ready yet. this medication now, contact your VA pharmacy. SUSPENDED An active prescription that is Contact your ID not scheduled to be filled yet. pharmacy if you need You should receive it before this medication now. you run out. == -------- END OF MEDICATION LIST -------- Medication Review: Medication list above used to complete medication review. Medication list, if any, was reviewed. The patient reports taking no medications(i,e Non-VA/OTC/Herbal medications/supplements). The patient does not report difficulties or adverse reaction/allergy with medications. /shwetha/ SUE MOSER NP Signed: 09/05/2023 10:36 SUE MOSER [facility] Sep 05, 2023 09:35 AM NURSING TRIAGE NOT E: LOCAL TITLE: NURSING OUTPT TRIAGE INTAKE NOTE STANDARD TITLE: NURSING TRIAGE NOTE DATE OF NOTE: SEP 05, 2023@09:35 ENTRY DATE: SEP 05, 2023@09:35:53 AUTHOR: FARIHA MARTIN COSIGNER: URGENCY: STATUS: COMPLETED RETURN VISIT: PATIENT AGE: 48 CHIEF COMPLAINT: 6 month f/u, states that he has lower back pain , with right and left shoulder pain with a pain scale of 4. [place] also has concerns with tightening of the chest that flucuates. Nomi is not currently experiencing chest pain at this time. Nomi wants to also talk about [facility] VITALS: T: 98.6 F [37.0 C] (09/05/2023 09:29) P: 87 (09/05/2023 09:) RR: 20 (09/05/2023 09:29) BP: 140/78 (09/05/2023:29) Ht: 70 in [177.8 cm] (09/05/2023:) Wt: 228.2 lb [103.51 kg] (09/05/2023:) Pain: 4 (09/05/2023:) BMI: BODY MASS INDEX SEP 05, 2023@09:29:02 32.8 JAN 27, 2023@13:43:26 33.0 DEC 27, 2022@10:26:44 32.8 ALLERGIES: MEDROL, SERTRALINE Is there anything that makes it hard for you to take care of your health? No PULSE OX: Room Air Is the patient taking any NEW Hstd-Mzv-Ossppwx, Non-VA, or Herbal medications? YES, listed below: cinnamon 1000mg daily CLINICAL REMINDER ACTIVITY/PLAN OF CARE Influenza Immunization: The patient declines to receive the recommended dose of seasonal influenza vaccine. Immunization: INFLUENZA, UNSPECIFIED FORMULATION Refusal Reason: PATIENT DECISION Patient refuses all immunization(s) in the FLU group Date Documented: 09/05/23 09:41 RHS Screen: RHS Screen Session Format: Face to Face Environmental Check Upon inquiry, the individual reports that the environment is safe to proceed. Informed Consent to Screen and Document The individual consents to proceed with screening. The individual consents to documentation of responses. PRIMARY SCREEN: In the past 12 months, how often did a current or former intimate partner (e.g., boyfriend, girlfriend, , , sexual partner): 1. Scream or curse at you Never 2. Insult or talk down to you Never 3. Threaten you with harm Never 4. Physically hurt you Never 5. Force or pressure you to have sexual contact against your will, or when you were unable to say no Never The HITS tool (items 1-4 above) is US copyright protected by Ye Cardenas MD, and the user has full rights to use it throughout the ID system. PRIMARY SCREEN RESULT: The Primary Screen is NEGATIVE. The individual answered never to all forms of IPV above (i.e., answered never to all 5 items) The individual accepts education and/or resources: Other: n/a EDUCATION: Other: n/a Depression Screening: Perform PHQ-2 A PHQ-2 screen was performed. The score was 1 which is a negative screen for depression. Over the past two weeks, how often have you been bothered by the following problems? 1. Little interest or pleasure in doing things Not at all 2. Feeling down, depressed, or hopeless Several days HTN Assess for Elevated BP>=140/90: Repeat blood pressure: 140/72 The patient was counseled on the importance of regular exercise and/or physical activity in the control of blood pressure. The patient was instructed to try to participate in 120 minutes of aerobic exercise per week if possible and that any increase in physical activity may be useful in controlling blood pressure. The patient was counseled on the importance of diet and weight loss/ control in the regulation of blood pressure. The patient was counseled that a diet low in dietary saturated and trans fats is beneficial in lowering blood pressure. The patient was counseled that a diet rich in fresh fruits, vegetables and whole grains is beneficial in lowering blood pressure. The patient was counseled to limit alcohol intake to no more than 2 drinks per day for men and 1 drink per day for women. /shwetha/ FARIHA MARTIN Signed: 09/05/2023 09:49 FARIHA MARTIN [facility]
--- OUTSIDE RECORDS SUMMARY | 2024-08-08 16:10 | XMS_ITS | Encounter Summary ---
Author Name [facility] Address [address] [place] [address] Care Team Providers Care Geomatics Professor Name Role Phone TIAGO SHIPMAN Primary Care Provider Unavailabl e Selected Encounter This section includes the information on record at [facility] for the Encounter. Date/Time Encounter Type Encounter Description Reason Provider Source Jun 20, 2024 10:15 AM OFF/OP EST OCTOBER X REQ PHY/QHP OPHTHALMOLOGY ICD-10-CM Z01.00 Encounter for exam of eyes and vision w/o abnormal findings BERRY ESCOBEDO Michelle Encounter Template Text not used by [facility] Assessments - Encounter Diagnoses This section includes the primary and secondary diagnoses documented for the Encounter. Date/Time Primary/Secondary Diagnosis Diagnosis Name Provider Source Jun 20, 2024 10:31 AM PRIMARY Encounter for exam of eyes and vision w/o abnormal findings [facility]ED[facility] Plan of Treatment: Future Appointments (+ 6 months) and Future Tests (+/- 45 days) The Plan of Treatment section includes future care activities for the patient from all [facility] treatment[facility]ilities. This section includes future appointments and future orders which are active, pending or scheduled. Future Appointments This section includes appointments that were scheduled to occur 6 months from the date of the Encounter, up to a maximum of 20 appointments. The data comes from all [facility] treatment facilities. Appointment Date/Time Appointment Type Appointme nt Facility Name Jul 05, 2024 02:30 PM AMBULATORY - NONE [facility] Jul 10, 2024 02:30 PM AMBULATORY - NONE [facility] Aug 10, 2024 02:30 PM AMBULATORY - NONE [facility] Social History: Smoking Status (Most current) and Tobacco Use (All prior to encounter date) This section includes the most current, and the historical, smoking and tobacco- related health factors from the [facility] facility where the Encounter took place. Current Smoking Status This section includes the most current smoking, or tobacco-related health factor, from the [facility] facility where the Encounter took place. Date/Time Current Smoking Status Comment Facil ity Dec 22, 2023 09:30 AM VA-TOBACCO FORMER USER [facility] Tobacco Use History This section includes a history of the smoking, or tobacco-related health factors, that were collected on or before the date of the Encounter. The data comes from the [facility] facility where the Encounter took place. Date/Time Smoking Status/Tobacco Use Comment F acility Dec 22, 2023 09:30 AM VA-TOBACCO QUIT 5 TO < 15 YRS [facility] Jun 28, 2022 10:00 AM VA-TOBACCO FORMER USER [facility] Jun 28, 2022 10:00 AM VA-TOBACCO QUIT 1 TO < 5 YRS [facility] Sep 15, 2020 10:00 AM VA-TOBACCO DOESNT USE WI 30 MIN WAKEUP [facility] Sep 15, 2020 10:00 AM VA-TOBACCO USE 30 YEARS OR MORE [facility] Sep 15, 2020 10:00 AM VA-TOBACCO USE ADVICE [facility] Sep 15, 2020 10:00 AM VA-TOBACCO USE DIRECTOR STARS NO [facility] Sep 15, 2020 10:00 AM VA-TOBACCO USE MED NOTIFY PROVIDER [facility] Sep 15, 2020 10:00 AM VA-TOBACCO USER EVERY DAY [facility] Jul 12, 2019 01:45 PM VA-TOBACCO DOESNT USE WI 30 MIN WAKEUP [facility] Jul 12, 2019 01:45 PM VA-TOBACCO USE 30 YEARS OR MORE [facility] Jul 12, 2019 01:45 PM VA-TOBACCO USE ADVICE [facility] Jul 12, 2019 01:45 PM VA-TOBACCO USE DIRECTOR STARS YES wants to quit [facility] Jul 12, 2019 01:45 PM VA-TOBACCO USE MED NOTIFY PROVIDER wants to quit [facility] Jul 12, 2019 01:45 PM VA-TOBACCO USER EVERY DAY [facility] Feb 25, 2017 12:01 PM V7-HX TOBACCO USER >12 MONTHS <7 YEARS [facility] Encounter Notes: All associated encounter notes This section contains the clinical notes associated to the Encounter. Date/Time Encounter Note(s) Provider Source Jun 20, 2024 10:23 AM OPHTHALMOLOGY NOTE : LOCAL TITLE: OPHTHALMOLOGY [facility] PROGRESS NOTE STANDARD TITLE: OPHTHALMOLOGY NOTE DATE OF NOTE: JUN 20, 2024@10:23 ENTRY DATE: JUN 20, 2024@10:23:25 AUTHOR: FLY ESCOBEDO COSIGNER: URGENCY: STATUS: COMPLETED OPHTHALMOLOGY [facility] PROGRESS NOTE Has ADD[facility]DA [facility] ([facility] Self Pay Collector Note THAD CORTES [phone] Telehealth Consent and Patient Identification Verification: Verified patient identity with 2 separate identifiers prior to the beginning of the visit: Yes Patient was informed that their information and images will be uploaded securely to the [facility] computer system and sent to be remotely interpreted by an eye provider. Recommendations/findings will be conveyed to them via phone call, video chat, and/or letter. Yes Patient verbalized understanding and agreed to participate in the [facility] telemedicine eye exam today. Yes [facility] Visit Type: Ocular Disease Monitoring COMPREHENSIVE SCREEN: HISTORY: Chief Complaint: Last exam was 3+ yrs ago. Pt states both dist/near vision has decreased. Pt states has floaters x6+ month No headaches/pains History of Present Illness: Last Eye Exam: 2-3 years ago [facility] HISTORY & REVIEW OF SYSTEMS Decrease in vision Gradual- OU for 2 Years or more Floaters - OU Greater than 2 months Discussed signs and symptoms of retinal tear/detachment. Patient to call immediately if changes/concerns such as new flashes/floaters, curtains, decreaed vision or other concerns GP DIABETES HISTORY: Last A1c: <<Placeholder for LAST A1C object>> The patient does NOT have diabetes EYE DISEASE HISTORY: No known ocular history PROCEDURE HISTORY: No history of ocular procedures/surgeries TRAUMA HISTORY: No history of ocular trauma FAMILY HISTORY No family history of glaucoma, macular degeneration, or blindness. SOCIAL HISTORY: Not actively smoking EYE MEDICATION(S): No Current Eye Medications REFRACTION AND VISION: scVA: OD: 20/25 J3 OS: 20/25 J3 Manifest Refraction (MRx): OD: -0.75+0.29v307 +2.25 OS: -0.75+1.23f583 +2.25 Final MRx VA: OD: 20/20 J1+ OS: 20/20 J1+ PACHYMETRY: Pachymetry Past Results: No data available INTRAOCULAR PRESSURE (IOP): Method: Date/Time: Jun@10:29 Rebound Tonometer OD: 17 OS: 16 PUPILS/ANTERIOR CHAMBER (AC) Penlight or slit lamp (if available) exam unremarkable Pupils are equal, round, and reactive to light No afferent defect Pupils are dilated - Side effects of dilation medication discussed, patient stated clear understanding, and patient consented to dilation. - Patient advised not to drive if they feel they have any symptoms which could affect their ability to drive safely. - Patient advised not to engage in any activities which could put themselves or others at risk if they feel they have any symptoms which could affect their ability to perform those activities safely. - Post-mydriatic glasses discussed and dispensed to reduce light sensitivity and increase comfort in bright sunlight. - Patient instructed to report to Eye Clinic or Emergency Room IMMEDIATELY if severe eye pain, facial pain, loss of vision or cloudy vision, severe headaches, or nausea occurs. Medication: 1% Tropicamide, 2.5% Phenylephrine, 0.5% Proparacaine Date/Time: Jun@10:29 Which Eye? OD How many drops? 1 ea OS How many drops? 1 ea IMAGING/TESTING: CATARACT EVALUATION/COMMUNITY CARE/VOICEMAIL/HANDOUTS: The patient does NOT desire a cataract surgery evaluation The patient is NOT willing to go to community care if applicable Per , okay to leave message regarding results and plan of care. Telephone number and address verified. Yes Optical policies and options discussed. Handout given to patient. Patient was informed about how and when results should be received. Handouts were distributed per local policy. CONSULT ORDERS: Appendix (abbreviations): AC (Anterior Chamber); AREDS (Age Related Eye Disease Study); ARX (Auto Refraction); BID (Two Times Daily); C:D (Cup-to-Disc); CIC (Care In The Community); DOSIMETRIST (Cyclophotocoagulation); CSME (Clinically Significant Macular Edema); DFE (Dilated Fundus Exam); Dorz/Timol (Dorzolamide/Timolol); DSEK (Descemet's Stripping Endothelial Keratoplasty); FAF (Fundus Autofluorescence); F/U (Follow up); GCC (Ganglion Cell Complex); Gonio (Gonioscopy); H/O (History Of); HTN (Hypertension); HVF (Bernal Visual Field); IOL (Intraocular Lens); IOP (Intraocular Pressure); K (Keratometry); LASIK (Laser-Assisted In Situ Keratomileusis); MD (Mean Deviation when used with visual field); dB (decibels); MRx (Manifest Refraction); NeoPolyDex/Erythro (Neomycin Polymyxin B Dexamethasone/Erythromycin); NFL (Nerve Fiber Layer); NPDR (Nonproliferative Diabetic Retinopathy); OCT (Optical Coherence Tomography); OD (Right Eye); OS (Left Eye); OU (Both Eyes); PDR (Proliferative Diabetic Retinopathy); PFATs (Preservative Free Artificial Tears); RK (Radial Keratotomy); RNFL (Retinal Nerve Fiber Layer); RTC (Return To Clinic); scVA (Visual Acuity Without Correction/Glasses); TC (Bengali Interactive Threshold Algorithm); TID (Three Times Daily); UV (Ultraviolet); VA (Visual Acuity); WRx (Prescription glasses currently worn); WRx VA (Visual Acuity With Prescription Glasses); YAG (Yttrium Aluminum Hartley) /shwetha/ FLY ESCOBEDO Signed: 06/20/2024 10:31 06/20/2024 ADDENDUM STATUS: COMPLETED pachs: od;616 os:616 /shwetha/ FLY ESCOBEDO Signed: 06/20/2024 10:50 FLY ESCOBEDO [facility]
== END 2024-08-08 16:42 | disposition home or self-care (01) ==
PROVIDERS: Emergency Provider Family Medicine
DX: M54.50 Low back pain, unspecified (principal); M47.816 Spondylosis without myelopathy or radiculopathy, lumbar region
CPT/HCPCS: 72100; 99284